=== PATIENT | female | born 1970 | race Two or more races ===

== ENCOUNTER 2018-12-02 20:53 | Inpatient (IN) | payer MEDICAID ==
[~2018-12-02] VITALS: Ht 160 cm; Wt 71.4 kg
--- NOTE | 2018-12-02 21:00 | NUR ---
ED Nurse Note: RECEIVED PT FROM SNF, HERE WITH C/O SEVERE, ABD PAIN WITH NAUSEA AND VOMITING FOR PAST DAY, PT HAS HX OF PANCREATITIS AND DIABETES WITH ELEVATED BS, PT IS ALERT AND ORIENTED X 4, PAIN AT 9/10, NO CP, NO SOB, PT IMMEDIATELY ASSISTED WITH GOWNING AND CARDIAC MONITORING, WILL RESUME CARE ORDERED AND CLOSELY MONITOR.
--- NOTE | 2018-12-02 21:10 | Emergency Room Report ---
History of Present Illness General Chief Complaint: Nausea Source: Patient, EMS Present Illness HPI Patient presents with vomiting, chest pain and high blood sugar. She's had a longterm facility. Her blood sugar was "high". They gave her 12 units of insulin. The patient's been vomiting. EMS reports that it's been coffee grounds. The patient states that she is constipated and last moved her bowels 4 days ago. She also has some mild epigastric pain. She feels nauseated his this time. She was recently hospitalized at [facility]. The patient's had multiple surgeries on her left ankle. She also cares a psychiatric diagnosis. She denies skin rash, headache, joint pain, fever although she complains of chills, dysuria. Allergies: Coded Allergies: No Known Allergies (Unverified , 12/02/18) Patient History Past Medical History: see triage record Past Surgical History: raj, other - Left ankle surgery Social History: Denies: smoking, alcohol use, drug use Social History Narrative longterm facility Last Menstrual Period: UNK Reviewed Nursing Documentation: PMH: Agreed; PSxH: Agreed Nursing Documentation-PMH Past Medical History: No History, Except For Hx Hypertension: Yes - DEHYDRATION, Hx Diabetes: Yes Review of Systems All Other Systems: negative except mentioned in HPI Physical Exam Sp02 EP Interpretation: reviewed, normal General Appearance: no apparent distress, other - GCS 14, eyes closed, Chronically Ill Head: normocephalic Eyes: bilateral eye normal inspection, bilateral eye PERRL, bilateral eye EOMI ENT: moist mucus membranes Neck: supple Respiratory: lungs clear, normal breath sounds Cardiovascular #1: regular rate, rhythm Cardiovascular #2: 2+ radial (R) Gastrointestinal: normal inspection, no mass, non-distended, no guarding, no rebound, tenderness - Diffuse, decreased bowel sounds Genitourinary: no CVA tenderness Musculoskeletal: back normal, normal range of motion Neurologic: motor strength/tone normal, DTRs symmetric, sensory intact, oriented - Tenderness to lethargic Psychiatric: depressed affect Skin: normal inspection, warm/dry, other - Sallow Medical Decision Making Diagnostic Impression: Primary Impression: Hyperglycemia Additional Impressions: UGI bleed Abdominal pain Qualified Codes: R10.84 - Generalized abdominal pain Renal insufficiency ER Course This diabetic patient presents with abdominal pain, chest pain and vomiting coffee grounds. Differential includes acute myocardial infarction, gastritis, gastroparesis, gastroenteritis, pancreatitis amongst others. She will be evaluated with chest x-ray abdominal film, EKG and labs. The patient will receive IV hydration, Reglan, Benadryl, Protonix and morphine. After the bolus we will repeat an Accu-Chek and she most likely will need to have insulin. EKG without injury. CXR, no infiltrates. Abd post raj, NSBGP. Labs with min leukocytosis. Renal insufficiency, elevated glucose, bicarb 18. Glucose better after bolus. Ph = 7.3. No need for insulin drip. Insulin bolus given. Vomit - reglan and benadryl After bolus, glucose 247. Continue hydration. Await UA. UA no infection. Abdomen is soft. Not surgical. Patient admitted telemetry Dr. Dixon. Laboratory Tests Test 12/02/18 21:00 12/02/18 22:30 White Blood Count 11.2 K/UL (4.8-10.8) H Red Blood Count 4.31 M/UL (4.20-5.40) Hemoglobin 12.7 G/DL (12.0-16.0) Hematocrit 38.1 % (37.0-47.0) Mean Corpuscular Volume 88 FL (80-99) Mean Corpuscular Hemoglobin 29.4 PG (27.0-31.0) Mean Corpuscular Hemoglobin Concent 33.3 G/DL (32.0-36.0) Red Cell Distribution Width 12.3 % (11.6-14.8) Platelet Count 384 K/UL (150-450) Mean Platelet Volume 7.6 FL (6.5-10.1) Neutrophils (%) (Auto) % (45.0-75.0) Lymphocytes (%) (Auto) % (20.0-45.0) Monocytes (%) (Auto) % (1.0-10.0) Eosinophils (%) (Auto) % (0.0-3.0) Basophils (%) (Auto) % (0.0-2.0) Differential Total Cells Counted 100 Neutrophils % (Manual) 87 % (45-75) H Lymphocytes % (Manual) 9 % (20-45) L Monocytes % (Manual) 3 % (1-10) Eosinophils % (Manual) 0 % (0-3) Basophils % (Manual) 1 % (0-2) Band Neutrophils 0 % (0-8) Platelet Estimate Adequate Platelet Morphology Normal Red Blood Cell Morphology Normal Sodium Level 135 MMOL/L (136-145) L Potassium Level 4.4 MMOL/L (3.5-5.1) Chloride Level 91 MMOL/L (98-107) L Carbon Dioxide Level 18 MMOL/L (21-32) L Anion Gap 26 mmol/L (5-15) H Blood Urea Nitrogen 45 mg/dL (7-18) H Creatinine 2.1 MG/DL (0.55-1.30) H Estimate Glomerular Filtration Rate 25.2 mL/min (>60) Glucose Level 525 MG/DL (74-106) *H Calcium Level 10.5 MG/DL (8.5-10.1) H Magnesium Level 2.0 MG/DL (1.8-2.4) Total Bilirubin 0.5 MG/DL (0.2-1.0) Aspartate Amino Transferase (AST) 19 U/L (15-37) Alanine Aminotransferase (ALT) 22 U/L (12-78) Alkaline Phosphatase 113 U/L (46-116) Total Protein 9.2 G/DL (6.4-8.2) H Albumin 4.2 G/DL (3.4-5.0) Globulin 5.0 g/dL Albumin/Globulin Ratio 0.8 (1.0-2.7) L Lipase 220 U/L (73-393) Acetone Level Positive-small (NEGATIVE) Venous Blood pH 7.329 Venous Blood Partial Pressure CO2 35.4 Venous Blood Partial Pressure O2 64.2 Venous Blood HCO3 18.2 Venous Blood Total Carbon Dioxide 35.4 Venous Bld O2 Saturation (Measured) Venous Blood Oxygen Saturation 91.8 Venous Blood Base Excess -6.9 Methemoglobin 0.4 Sodium (Blood Gas) EKG Diagnostic Results Rate: normal Rhythm: NSR ST Segments: no acute changes Rhythm Strip Diag. Results EP Interpretation: yes Rhythm: NSR, no PVC's, no ectopy Chest X-Ray Diagnostic Results Chest X-Ray Diagnostic Results : Chest X-Ray Ordered: Yes # of Views/Limited/Complete: 1 View Indication: Other EP Interpretation: Yes Interpretation: no consolidation, no effusion, no pneumothorax Impression: No acute disease Electronically Signed by: Electronically signed by Law Lazar MD Other X-Ray Diagnostic Results Other X-Ray Diagnostic Results : X-Ray ordered: abd # of Views/Limited Vs Complete: 2 View Indication: Pain EP Interpretation: Yes Interpretation: nonspecific bowel gas, no sbo, other - Lucy clips Impression: Other Last Vital Signs Date Time Temp Pulse Resp B/P (MAP) Pulse Ox O2 Delivery O2 Flow Rate FiO2 12/03/18 08:24 98.7 20 159/85 (109) 98 12/03/18 04:00 100 12/03/18 01:00 Room Air Status: improved Disposition: ADMITTED INPATIENT Condition: Serious Law Lazar MD December 02, 2018 21:10
[2018-12-02] MEDS ORDERED: ATIVAN1 MG ORAL (21:11)
[2018-12-02] MEDS ORDERED: LORAZEPAM0.5 GM MC (21:11)
[2018-12-02] MEDS ORDERED: ASPIR 8181 MG ORAL (21:11)
[2018-12-02] MEDS ORDERED: COLACE100 MG ORAL (21:11)
[2018-12-02] MEDS ORDERED: AMBIEN10 M1 ORAL (21:11)
[2018-12-02] MEDS ORDERED: SEROQUEL300 MG ORAL (21:11)
[2018-12-02] MEDS ORDERED: ATORVASTATIN CA40 MG ORAL (21:11)
[2018-12-02] MEDS ORDERED: NEURONTIN300 MG ORAL (21:11)
[2018-12-02] MEDS ORDERED: LISINOPRIL20 MG ORAL (21:11)
[2018-12-02] MEDS ORDERED: LR 1000ml 1,000 ML IV SCH (21:15)
[2018-12-02] MEDS ORDERED: Pantoprazole Inj IVP ONE (21:15)
[2018-12-02] MEDS ORDERED: Morphine Sulfate 4mg/ml Inj (IV USE ONLY) IVP ONE ×2 (21:15→23:15)
[2018-12-02 21:24] LABS: HEMATOCRIT 38.1 % (37.0-47.0); HEMOGLOBIN 12.7 G/DL (12.0-16.0); MEAN CORPUSCULAR VOLUME 88 FL (80-99); PLATELET COUNT 384 K/UL (150-450); RED BLOOD COUNT 4.31 M/UL (4.20-5.40); RED CELL DISTRIBUTION WIDTH 12.3 % (11.6-14.8); WHITE BLOOD COUNT 11.2 K/UL (4.8-10.8)
[2018-12-02 21:45] LABS: ALANINE AMINOTRANSFERASE 22 U/L (12-78); ALBUMIN 4.2 G/DL (3.4-5.0); ALBUMIN/GLOBULIN RATIO 0.8 (1.0-2.7); ALKALINE PHOSPHATASE 113 U/L (46-116); ANION GAP 26 mmol/L (5-15); ASPARTATE AMINO TRANSFERASE 19 U/L (15-37); BILIRUBIN,TOTAL 0.5 MG/DL (0.2-1.0); BLOOD UREA NITROGEN 45 mg/dL (7-18); CALCIUM 10.5 MG/DL (8.5-10.1); CARBON DIOXIDE 18 MMOL/L (21-32); CHLORIDE 91 MMOL/L (98-107); CREATININE 2.1 MG/DL (0.55-1.30); POTASSIUM 4.4 MMOL/L (3.5-5.1); SODIUM 135 MMOL/L (136-145)
[2018-12-02] MEDS ORDERED: SULFAMETHOXAZO480 ML ORAL (21:45)
[2018-12-02] MEDS ORDERED: MECLIZINE HCL25 M1 ORAL (21:45)
[2018-12-02] MEDS ORDERED: MORPHINE IR15 MG ORAL (21:45)
[2018-12-02] MEDS ORDERED: SUMATRIPTA6 MG/0.54 PO (21:45)
[2018-12-02] MEDS ORDERED: METFORMIN HCL5000 GM MC (21:45)
[2018-12-02] MEDS ORDERED: CITRATE OF MAG296 ML PO (21:45)
[2018-12-02] MEDS ORDERED: ZOLOFT100 MG ORAL (21:47)
[2018-12-02] MEDS ORDERED: ZOFRAN4 M1 ORAL (21:47)
[2018-12-02 22:00] VITALS: BP 118/65
[2018-12-02] MEDS ORDERED: D5 1/2NS 1,000 ML IV SCH (22:49)
[2018-12-02] MEDS ORDERED: Morphine Sulfate 2mg/ml Inj(IV/IM USE ONLY) IVP PRN (23:00)
[2018-12-02] MEDS ORDERED: Morphine IR 15mg tab ORAL PRN (23:00)
[2018-12-02] MEDS ORDERED: Insulin Human Regular 100units/ml 3ml IV ONE (23:00)
[2018-12-02] MEDS ORDERED: Miralax 17gm pkt ORAL PRN (23:00)
[2018-12-02] MEDS ORDERED: Nitroglycerin Subl 0.4mg tab SL PRN (23:00)
[2018-12-02] MEDS ORDERED: Metoclopramide 10mg/2ml Inj IVP ONE (23:15)
[2018-12-02] MEDS ORDERED: DiphenhydrAMINE 50mg/ml Inj IVP ONE (23:15)
--- NOTE | 2018-12-02 23:15 | NUR ---
ED Nurse Note: Pt continues to rest quietly in bed, awake and alert, meds given as ordered, pain meds slightly effective and nausea resolved after meds, pt rates pain at 6/10, remains on cardiac monitoring, blood sugar level re-taken and recorded, md is aware, will repeat test after iv fluids completed, pt remains on cardiac monitoring, will continue to closely monitor and prepare for admission.
[2018-12-02 23:30] VITALS: BP 107/53
[2018-12-03] VITALS (10 sets, daily range): BP systolic 119–166; BP diastolic 62–91
[2018-12-03 00:14] LABS: APPEARANCE,URINE CLEAR; BILIRUBIN, URINE NEGATIVE (NEGATIVE); COLOR,URINE PALE YELLOW; GLUCOSE, URINE (UA) 4+ (NEGATIVE); KETONES,URINE 4+ (NEGATIVE); LEUKOCYTE ESTERASE ,URINE NEGATIVE (NEGATIVE); NITRITE,URINE NEGATIVE (NEGATIVE); PH,URINE 5 (4.5-8.0); PROTEIN,URINE 2+ (NEGATIVE); UROBILINOGEN,URINE NORMAL MG/DL (0.0-1.0)
--- NOTE | 2018-12-03 00:30 | NUR ---
ED Nurse Note: Pt continues to rest in bed, family at bedside, blood sugar level decreased after iv insulin, pt remains with abdominal pain, md aware and pt re-medicated, will monitor for effectiveness, waiting for md to state pt is ok to go to floor for admit.
--- NOTE | 2018-12-03 00:40 | NUR ---
ED Nurse Note: PT OK TO GO TO FLOOR FOR ADMIT PER , REPORT CALLED TO FLOOR NURSE STACI,RN, PT IN BED AWAKE, ALERT AND ORIENTED X 4, AND MOTHER AT BEDSIDE, PT PAIN LEVEL AT 4/10, IV SITE PATENT, NO CP, NO SOB, PT BEING TAKEN TO FLOOR UNIT VIA GURNEY AND ACLS PROTOCOLS, PT HAS ALL BELONIGNGS, LIST COMPLETED, NAD NOTED DURING PT TRANSFER TO FLOOR.
--- NOTE | 2018-12-03 01:00 | NUR ---
NURSE NOTES: Pt report Received from Yady MARQUEZ-RN. Pt was brought up with all belongings and was placed at bed side. Pt appears to have symptoms of Nausea accompanied with vomiting. Pt is alert and oriented times 4. Pt has a case monitor placed and displays Sinus Tacky. pt is on room air is saturating at 99% with no other acute signs or symptoms of respiratory failure noted. Pt has a 18G R FA inserted and able to flush, no complications noted. All safety precautions noted and taken such as Bed is in lowest position, call light is within easy reach, bed rails up times 3, bed alarm active. Will establish plan of care.
--- NOTE | 2018-12-03 01:30 | NUR ---
NURSE NOTES: MD Dixon was messaged regarding PTs condition on MD urgent line. Awaiting MD response and further orders.
--- NOTE | 2018-12-03 01:41 | NUR ---
NURSE NOTES: MD Morgan was messaged regarding PTs condition such as shaking, vomiting and tracky. awaiting MD response and further orders.
--- NOTE | 2018-12-03 05:48 | NUR ---
NURSE NOTES: Called pipeline to order label for Novolog Pen.
[2018-12-03] MEDS ORDERED: NovoLOG Insulin Flexpen SUBQ SCH ×4 (06:30→11:50)
[2018-12-03 06:50] LABS: BASOPHILS % (AUTO) 0.8 % (0.0-2.0); HEMATOCRIT 35.6 % (37.0-47.0); HEMOGLOBIN 11.6 G/DL (12.0-16.0); MEAN CORPUSCULAR VOLUME 90 FL (80-99); NEUTROPHILS % (AUTO) 83.3 % (45.0-75.0); PLATELET COUNT 350 K/UL (150-450); RED BLOOD COUNT 3.94 M/UL (4.20-5.40); RED CELL DISTRIBUTION WIDTH 13.2 % (11.6-14.8); WHITE BLOOD COUNT 14.2 K/UL (4.8-10.8)
[2018-12-03 07:11] LABS: ALANINE AMINOTRANSFERASE 21 U/L (12-78); ALBUMIN 3.8 G/DL (3.4-5.0); ALBUMIN/GLOBULIN RATIO 0.9 (1.0-2.7); ALKALINE PHOSPHATASE 97 U/L (46-116); AMYLASE 91 U/L (25-115); ANION GAP 20 mmol/L (5-15); ASPARTATE AMINO TRANSFERASE 16 U/L (15-37); BILIRUBIN,TOTAL 0.6 MG/DL (0.2-1.0); BLOOD UREA NITROGEN 42 mg/dL (7-18); CALCIUM 9.8 MG/DL (8.5-10.1); CARBON DIOXIDE 20 MMOL/L (21-32); CHLORIDE 99 MMOL/L (98-107); CREATININE 1.9 MG/DL (0.55-1.30); POTASSIUM 4.2 MMOL/L (3.5-5.1); SODIUM 139 MMOL/L (136-145)
--- NOTE | 2018-12-03 07:13 | NUR ---
NURSE NOTES: Called MD Polo In regards to transfer.
--- NOTE | 2018-12-03 08:25 | NUR ---
NURSE NOTES: Pt report k-kayli FAROOQ. Pt was brought up from tele. Pt c/o Nausea. Pt is A/OX 4. Pt IS connected to yard brakeman placed HR 109. BP 159/85, RR 20, 02SAT 99%. pt is on room air, saturating at 99%. abdomen round, bowel sounds hypoactive. no BM since 11/28-per pt report. Pt has a 18G R FA inserted, patent and intact. voids. All safety precautions in place. Bed is in lowest position, call light is within easy reach, bed rails up x3, bed alarm active. Will establish plan of care.
--- NOTE | 2018-12-03 08:32 | NUR ---
HAND-OFF: Report given to Gregoria FAROOQ ICU.
[2018-12-03] MEDS ORDERED: Nitroglycerin Subl 0.4mg tab SL PRN (08:45)
[2018-12-03] MEDS ORDERED: Levemir Flexpen SUBQ SCH ×2 (09:00→10:30)
[2018-12-03] MEDS ORDERED: Morphine Sulfate 2mg/ml Inj(IV/IM USE ONLY) IVP PRN (09:00)
[2018-12-03] MEDS ORDERED: Sertraline 100mg tab ORAL SCH (09:00)
--- NOTE | 2018-12-03 09:27 | NUR ---
*-* NO INSURANCE INFORMATION IN THE BAR TO SEND CLINICALS *-*
[2018-12-03] MEDS ORDERED: D5 1/2NS 1,000 ML IV SCH ×2 (09:30→10:30)
--- NOTE | 2018-12-03 10:08 | NUR ---
NURSE NOTES: called MD Polo for additional order for pt. need for insulin drip or not, accuchk 226. wbc 14.2 continue. awaiting call back.
--- NOTE | 2018-12-03 10:16 | NUR ---
NURSE NOTES: md estes here to see pt. order to increase d5 1/2 ns from 75 to 175ml/hr. will place additional orders
[2018-12-03] MEDS: LORazepam 0.5mg tab ORAL PRN ×3 (10:35→23:38)
--- NOTE | 2018-12-03 10:36 | History & Physical ---
History and Physical History & Physicial Job @ [id number] Donald Dixon MD December 03, 2018 10:36
[2018-12-03] MEDS: Sertraline 100mg tab ORAL SCH (10:42)
--- NOTE | 2018-12-03 10:55 | NUR ---
NURSE NOTES: pt c/o pain 03/29 requested morphine for back pain. Requested Ativan for anxiety. pt sitting up in bed rocking back and forth and shaking hands. VSS. MD Morgan here to see pt. MD Dixon placed order to change IV fluids to NS @125ml/hr.
[2018-12-03] MEDS ORDERED: Morphine IR 15mg tab ORAL PRN (11:00)
--- NOTE | 2018-12-03 11:02 | Pulmonolgy Critical Care Note ---
Critical Care - Asmt/Plan Problems: (1) UGI bleed (2) Hyperglycemia Respiratory: adjust tidal volume, adjust FIO2 Cardiac: stop pressors Infectious Disease: check cultures Gastrointestinal: continue feedings/current rate Endocrine: check TSH, continue sliding scale insulin Hematologic: monitor H/H, transfuse if hgb<8.5 Neurologic: keep patient comfortable Affect: PRN ativan Notes Reviewed: cardio, renal Discussed with: consultants, family service caseworkermanager oracle - Objective Last 24 Hour Vital Signs Date Time Temp Pulse Resp B/P (MAP) Pulse Ox O2 Delivery O2 Flow Rate FiO2 12/03/18 08:24 98.7 20 159/85 (109) 98 12/03/18 08:00 109 12/03/18 04:00 98.2 100 18 140/90 (107) 99 12/03/18 04:00 113 12/03/18 01:06 137 12/03/18 01:00 Room Air 12/03/18 00:40 98.4 108 16 107/53 99 Room Air 12/02/18 23:30 98.4 108 16 107/53 99 Room Air 12/02/18 22:00 98.4 104 16 118/65 99 Room Air 12/02/18 20:46 98.2 95 22 99 Room Air Status: awake Condition: critical HEENT: atraumatic Lungs: clear Heart: HR/BP stable, HR/BP unstable Abdomen: soft, active bowel sounds Extremities: edema Decubiti: location Micro: Microbiology Date/Time Source Procedure Growth Status 12/02/18 23:30 Rectum Received Accucheck: 325 Critical Care - Subjective ROS Limited/Unobtainable: Yes Interval Events: pt admitted with hyperglycemia/nausea/vomiting I&O: Intake and Output 12/02/18 12/03/18 18:59 06:59 Output Total 400 ml Balance -400 ml Output Urine Total 400 ml # Voids 100 Labs: Laboratory Tests Test 12/02/18 21:00 12/02/18 22:25 12/02/18 23:40 12/03/18 06:20 White Blood Count 11.2 K/UL (4.8-10.8) H 14.2 K/UL (4.8-10.8) H Red Blood Count 4.31 M/UL (4.20-5.40) 3.94 M/UL (4.20-5.40) L Hemoglobin 12.7 G/DL (12.0-16.0) 11.6 G/DL (12.0-16.0) L Hematocrit 38.1 % (37.0-47.0) 35.6 % (37.0-47.0) L Mean Corpuscular Volume 88 FL (80-99) 90 FL (80-99) Mean Corpuscular Hemoglobin 29.4 PG (27.0-31.0) 29.3 PG (27.0-31.0) Mean Corpuscular Hemoglobin Concent 33.3 G/DL (32.0-36.0) 32.5 G/DL (32.0-36.0) Red Cell Distribution Width 12.3 % (11.6-14.8) 13.2 % (11.6-14.8) Platelet Count 384 K/UL (150-450) 350 K/UL (150-450) Mean Platelet Volume 7.6 FL (6.5-10.1) 8.5 FL (6.5-10.1) Neutrophils (%) (Auto) % (45.0-75.0) 83.3 % (45.0-75.0) H Lymphocytes (%) (Auto) % (20.0-45.0) 11.0 % (20.0-45.0) L Monocytes (%) (Auto) % (1.0-10.0) 5.0 % (1.0-10.0) Eosinophils (%) (Auto) % (0.0-3.0) 0.0 % (0.0-3.0) Basophils (%) (Auto) % (0.0-2.0) 0.8 % (0.0-2.0) Differential Total Cells Counted 100 Neutrophils % (Manual) 87 % (45-75) H Lymphocytes % (Manual) 9 % (20-45) L Monocytes % (Manual) 3 % (1-10) Eosinophils % (Manual) 0 % (0-3) Basophils % (Manual) 1 % (0-2) Band Neutrophils 0 % (0-8) Platelet Estimate Adequate Platelet Morphology Normal Red Blood Cell Morphology Normal Sodium Level 135 MMOL/L (136-145) L 139 MMOL/L (136-145) Potassium Level 4.4 MMOL/L (3.5-5.1) 4.2 MMOL/L (3.5-5.1) Chloride Level 91 MMOL/L (98-107) L 99 MMOL/L (98-107) Carbon Dioxide Level 18 MMOL/L (21-32) L 20 MMOL/L (21-32) L Anion Gap 26 mmol/L (5-15) H 20 mmol/L (5-15) H Blood Urea Nitrogen 45 mg/dL (7-18) H 42 mg/dL (7-18) H Creatinine 2.1 MG/DL (0.55-1.30) H 1.9 MG/DL (0.55-1.30) H Estimat Glomerular Filtration Rate 25.2 mL/min (>60) 28.2 mL/min (>60) Glucose Level 525 MG/DL (74-106) *H 349 MG/DL (74-106) #H Calcium Level 10.5 MG/DL (8.5-10.1) H 9.8 MG/DL (8.5-10.1) Magnesium Level 2.0 MG/DL (1.8-2.4) 1.8 MG/DL (1.8-2.4) Total Bilirubin 0.5 MG/DL (0.2-1.0) 0.6 MG/DL (0.2-1.0) Aspartate Amino Transf (AST/SGOT) 19 U/L (15-37) 16 U/L (15-37) Alanine Aminotransferase (ALT/SGPT) 22 U/L (12-78) 21 U/L (12-78) Alkaline Phosphatase 113 U/L (46-116) 97 U/L (46-116) Total Protein 9.2 G/DL (6.4-8.2) H 8.1 G/DL (6.4-8.2) Albumin 4.2 G/DL (3.4-5.0) 3.8 G/DL (3.4-5.0) Globulin 5.0 g/dL 4.3 g/dL Albumin/Globulin Ratio 0.8 (1.0-2.7) L 0.9 (1.0-2.7) L Lipase 220 U/L (73-393) 367 U/L (73-393) Acetone Level Positive-small (NEGATIVE) Venous Blood pH 7.329 Venous Blood Partial Pressure CO2 35.4 Venous Blood Partial Pressure O2 64.2 Venous Blood HCO3 18.2 Venous Blood Total Carbon Dioxide 35.4 Venous Bld O2 Saturation (Measured) Venous Blood Oxygen Saturation 91.8 Venous Blood Base Excess -6.9 Methemoglobin 0.4 Sodium (Blood Gas) Urine Color Pale yellow Urine Appearance Clear Urine pH 5 (4.5-8.0) Urine Specific [place] 1.010 (1.005-1.035) Urine Protein 2+ (NEGATIVE) H Urine Glucose (UA) 4+ (NEGATIVE) H Urine Ketones 4+ (NEGATIVE) H Urine Blood Negative (NEGATIVE) Urine Nitrite Negative (NEGATIVE) Urine Bilirubin Negative (NEGATIVE) Urine Urobilinogen Normal MG/DL (0.0-1.0) Urine Leukocyte Esterase Negative (NEGATIVE) Urine RBC 0-2 /HPF (0 - 2) Urine WBC 2-4 /HPF (0 - 2) Urine Squamous Epithelial Cells Moderate /LPF (NONE/OCC) H Urine Bacteria Few /HPF (NONE) Urine HCG, Qualitative Negative (NEGATIVE) Prothrombin Time 10.3 SEC (9.30-11.50) Prothromb Time International Ratio 1.0 (0.9-1.1) Activated Partial Thromboplast Time 24 SEC (23-33) Hemoglobin A1c 10.6 % (4.3-6.0) H Phosphorus Level 4.0 MG/DL (2.5-4.9) Amylase Level 91 U/L (25-115) Test 12/03/18 10:41 Lactic Acid Level Pending Misbah Morgan MD December 03, 2018 11:02
--- NOTE | 2018-12-03 11:30 | NUR ---
NURSE NOTES: PT HAVING PROCEDURE U.S OF RENAL AT BEDSIDE. Addendum: 12/03/18 at 1251 by Pura Donaldson RN having duplex of lower extremity
--- NOTE | 2018-12-03 11:45 | Diagnostic Imaging Report ---
Indication: Abdominal pain Comparison: None Single view of the abdomen obtained Findings: Bowel gas pattern is nonspecific. No mass, ectopic calcifications, or abnormal gas collections are identified. The bones are unremarkable. Cholecystectomy clips in the right upper quadrant noted. Impression: No acute findings
--- NOTE | 2018-12-03 11:45 | GI Progress Note ---
Assessment/Plan Problems: (1) DKA (diabetic ketoacidoses) ICD Codes: E11.10 - Type 2 diabetes mellitus with ketoacidosis without coma SNOMED: 08763887, [id number] (2) Constipation ICD Codes: K59.00 - Constipation, unspecified SNOMED: 84722854 Assessment/Plan colace and miralax add more laxative if needed icu care Subjective Gastrointestinal/Abdominal: Reports: no symptoms Objective Last 24 Hour Vital Signs Date Time Temp Pulse Resp B/P (MAP) Pulse Ox O2 Delivery O2 Flow Rate FiO2 12/03/18 09:00 Room Air 12/03/18 08:24 98.7 20 159/85 (109) 98 12/03/18 08:00 109 12/03/18 04:00 98.2 100 18 140/90 (107) 99 12/03/18 04:00 113 12/03/18 01:06 137 12/03/18 01:00 Room Air 12/03/18 00:40 98.4 108 16 107/53 99 Room Air 12/02/18 23:30 98.4 108 16 107/53 99 Room Air 12/02/18 22:00 98.4 104 16 118/65 99 Room Air 12/02/18 20:46 98.2 95 22 99 Room Air Intake and Output 12/02/18 12/03/18 18:59 06:59 Output Total 400 ml Balance -400 ml Output Urine Total 400 ml # Voids 100 Laboratory Tests Test 12/02/18 21:00 12/02/18 22:25 12/02/18 23:40 12/03/18 06:20 White Blood Count 11.2 K/UL (4.8-10.8) H 14.2 K/UL (4.8-10.8) H Red Blood Count 4.31 M/UL (4.20-5.40) 3.94 M/UL (4.20-5.40) L Hemoglobin 12.7 G/DL (12.0-16.0) 11.6 G/DL (12.0-16.0) L Hematocrit 38.1 % (37.0-47.0) 35.6 % (37.0-47.0) L Mean Corpuscular Volume 88 FL (80-99) 90 FL (80-99) Mean Corpuscular Hemoglobin 29.4 PG (27.0-31.0) 29.3 PG (27.0-31.0) Mean Corpuscular Hemoglobin Concent 33.3 G/DL (32.0-36.0) 32.5 G/DL (32.0-36.0) Red Cell Distribution Width 12.3 % (11.6-14.8) 13.2 % (11.6-14.8) Platelet Count 384 K/UL (150-450) 350 K/UL (150-450) Mean Platelet Volume 7.6 FL (6.5-10.1) 8.5 FL (6.5-10.1) Neutrophils (%) (Auto) % (45.0-75.0) 83.3 % (45.0-75.0) H Lymphocytes (%) (Auto) % (20.0-45.0) 11.0 % (20.0-45.0) L Monocytes (%) (Auto) % (1.0-10.0) 5.0 % (1.0-10.0) Eosinophils (%) (Auto) % (0.0-3.0) 0.0 % (0.0-3.0) Basophils (%) (Auto) % (0.0-2.0) 0.8 % (0.0-2.0) Differential Total Cells Counted 100 Neutrophils % (Manual) 87 % (45-75) H Lymphocytes % (Manual) 9 % (20-45) L Monocytes % (Manual) 3 % (1-10) Eosinophils % (Manual) 0 % (0-3) Basophils % (Manual) 1 % (0-2) Band Neutrophils 0 % (0-8) Platelet Estimate Adequate Platelet Morphology Normal Red Blood Cell Morphology Normal Sodium Level 135 MMOL/L (136-145) L 139 MMOL/L (136-145) Potassium Level 4.4 MMOL/L (3.5-5.1) 4.2 MMOL/L (3.5-5.1) Chloride Level 91 MMOL/L (98-107) L 99 MMOL/L (98-107) Carbon Dioxide Level 18 MMOL/L (21-32) L 20 MMOL/L (21-32) L Anion Gap 26 mmol/L (5-15) H 20 mmol/L (5-15) H Blood Urea Nitrogen 45 mg/dL (7-18) H 42 mg/dL (7-18) H Creatinine 2.1 MG/DL (0.55-1.30) H 1.9 MG/DL (0.55-1.30) H Estimat Glomerular Filtration Rate 25.2 mL/min (>60) 28.2 mL/min (>60) Glucose Level 525 MG/DL (74-106) *H 349 MG/DL (74-106) #H Calcium Level 10.5 MG/DL (8.5-10.1) H 9.8 MG/DL (8.5-10.1) Magnesium Level 2.0 MG/DL (1.8-2.4) 1.8 MG/DL (1.8-2.4) Total Bilirubin 0.5 MG/DL (0.2-1.0) 0.6 MG/DL (0.2-1.0) Aspartate Amino Transf (AST/SGOT) 19 U/L (15-37) 16 U/L (15-37) Alanine Aminotransferase (ALT/SGPT) 22 U/L (12-78) 21 U/L (12-78) Alkaline Phosphatase 113 U/L (46-116) 97 U/L (46-116) Total Protein 9.2 G/DL (6.4-8.2) H 8.1 G/DL (6.4-8.2) Albumin 4.2 G/DL (3.4-5.0) 3.8 G/DL (3.4-5.0) Globulin 5.0 g/dL 4.3 g/dL Albumin/Globulin Ratio 0.8 (1.0-2.7) L 0.9 (1.0-2.7) L Lipase 220 U/L (73-393) 367 U/L (73-393) Acetone Level Positive-small (NEGATIVE) Venous Blood pH 7.329 Venous Blood Partial Pressure CO2 35.4 Venous Blood Partial Pressure O2 64.2 Venous Blood HCO3 18.2 Venous Blood Total Carbon Dioxide 35.4 Venous Bld O2 Saturation (Measured) Venous Blood Oxygen Saturation 91.8 Venous Blood Base Excess -6.9 Methemoglobin 0.4 Sodium (Blood Gas) Urine Color Pale yellow Urine Appearance Clear Urine pH 5 (4.5-8.0) Urine Specific [place] 1.010 (1.005-1.035) Urine Protein 2+ (NEGATIVE) H Urine Glucose (UA) 4+ (NEGATIVE) H Urine Ketones 4+ (NEGATIVE) H Urine Blood Negative (NEGATIVE) Urine Nitrite Negative (NEGATIVE) Urine Bilirubin Negative (NEGATIVE) Urine Urobilinogen Normal MG/DL (0.0-1.0) Urine Leukocyte Esterase Negative (NEGATIVE) Urine RBC 0-2 /HPF (0 - 2) Urine WBC 2-4 /HPF (0 - 2) Urine Squamous Epithelial Cells Moderate /LPF (NONE/OCC) H Urine Bacteria Few /HPF (NONE) Urine HCG, Qualitative Negative (NEGATIVE) Prothrombin Time 10.3 SEC (9.30-11.50) Prothromb Time International Ratio 1.0 (0.9-1.1) Activated Partial Thromboplast Time 24 SEC (23-33) Hemoglobin A1c 10.6 % (4.3-6.0) H Phosphorus Level 4.0 MG/DL (2.5-4.9) Amylase Level 91 U/L (25-115) Test 12/03/18 10:41 Lactic Acid Level 2.50 mmol/L (0.4-2.0) H Microbiology Date/Time Source Procedure Growth Status 12/02/18 23:30 Rectum Received Height (Feet): 5 Height (Inches): 3.00 Weight (Pounds): 170 General Appearance: alert Cardiovascular: normal rate Respiratory/Chest: lungs clear Abdominal Exam: normal bowel sounds, non tender, soft Extremities: non-tender Shayne Medina MD December 03, 2018 11:45
--- NOTE | 2018-12-03 11:45 | Diagnostic Imaging Report ---
Indication: Chest and abdominal pain Comparison: None A single view chest radiograph was obtained. Findings: Cardiomediastinal appearance is within normal limits for age. The lungs are clear. Pulmonary vascularity is appropriate. The diaphragmatic contour is smooth and costophrenic angles are sharp. No pleural effusions are identified. The bones are unremarkable. Impression: No acute findings
--- NOTE | 2018-12-03 12:25 | NUR ---
CASE MANAGEMENT:REVIEW 48 YR OLD FEMALE BIBA FROM [facility] CC: NAUSEA AND VOMITING. COFFEE GROUND EMESIS SI: HYPERGLYCEMIA. UGIB. ABDOMINAL PAIN 98.3 104 22 118/65 99% ON RA WBC+11.1 BUN+45 CR+2.1 GLUCOSE+525 IS: 1L NS BOLUS IV ZOFRAN IV MORPHINE 1L LR BOLUS IV PROTONIX IV INSULIN XRAY ABDOMEN CHEST XRAY : TO TELEMETRY INTERQUAL CRITERIA MET
--- NOTE | 2018-12-03 12:34 | NUR ---
NURSE NOTES: recevied call from md lopez, to place order for iv insulin, d/c subcut insulin.
--- NOTE | 2018-12-03 12:51 | NUR ---
NURSE NOTES: renal U.S being done on pt. vss.
[2018-12-03 13:19] LABS: APPEARANCE,URINE CLEAR; BILIRUBIN, URINE NEGATIVE (NEGATIVE); COLOR,URINE PALE YELLOW; GLUCOSE, URINE (UA) 4+ (NEGATIVE); KETONES,URINE 4+ (NEGATIVE); LEUKOCYTE ESTERASE ,URINE 1+ (NEGATIVE); PH,URINE 5 (4.5-8.0); PROTEIN,URINE 2+ (NEGATIVE); UROBILINOGEN,URINE NORMAL MG/DL (0.0-1.0)
[2018-12-03 13:29] LABS: NITRITE,URINE NEGATIVE (NEGATIVE)
[2018-12-03] MEDS ORDERED: Insulin Rate Change 1 Each MISC PRN (14:00)
[2018-12-03] MEDS ORDERED: Insulin Human Regular 100units/ml 3ml IV PRN (14:00)
[2018-12-03] MEDS: Insulin Human Regular 100units/ml 3ml IV PRN ×2 (14:30→15:54)
--- NOTE | 2018-12-03 14:35 | NUR ---
NURSE NOTES: BG 257, STARTING IV INSULIN @3UNITS/KG/MIN, +5 UNITS IVP REGULAR INSULIN.
--- NOTE | 2018-12-03 14:39 | NUR ---
NURSE NOTES: LAB HERE TO DRAW BLOOD. PT VSS. WILL CONTINUE TO MONITOR. PT VOMITED 1X CLEAR WITH BROWN SPECKS. ZOFRAN ADMINISTERED., IVP PER EMAR. WILL CONTINUE TO MONITOR PT.
[2018-12-03 14:58] LABS: CREATINE KINASE 47 U/L (26-308)
--- NOTE | 2018-12-03 15:00 | NUR ---
NURSE NOTES: pt resting in bed. linen changed, pt cleaned with minimal assistance. vss. invited family in after cleaning, at bedside now.
--- NOTE | 2018-12-03 15:17 | Diagnostic Imaging Report ---
Indication:Elevated Bun and Creatinine. Technique: Grayscale and duplex Doppler imaging of the kidneys performed. Comparison: None Findings: The size, contour, and echogenicity of both kidneys are within normal limits. Right kidney 9.6 cm. Left kidney 9.5 cm. There is no hydronephrosis. The IVC and urinary bladder are unremarkable. Impression: Negative evaluation
--- NOTE | 2018-12-03 17:00 | NUR ---
NURSE NOTES: bg 127, not in taget range 90-120, post 3hrs of insulin drip. moving up to alog 2. insulin drip at 1.5units/kg/min
[2018-12-03] MEDS: Docusate 100mg cap ORAL SCH (17:07)
--- NOTE | 2018-12-03 18:00 | Consultation ---
DATE OF CONSULTATION: 12/03/2018 ENDOCRINOLOGY CONSULTATION CONSULTING PHYSICIAN: Diallo Polo M.D. REFERRING PHYSICIAN: Donald Dixon M.D. REASON FOR CONSULTATION: Elevated glucose. HISTORY OF PRESENT ILLNESS: The patient is a 48-year-old female with a history of diabetes, who presented to the hospital from residential facility with high blood sugar, nausea, vomiting, and coffee ground emesis. The patient was given 12 units of insulin at the field and the patient is constipated. Last moved her bowels four days ago. Does have epigastric pain and had a recent admission to the [facility]. She had multiple surgeries on the left ankle and she does also have some underlying psychiatric illness. PAST MEDICAL HISTORY: 1. Diabetes. 2. Psychiatric illness. 3. Hypertension. 4. Dyslipidemia. PAST SURGICAL HISTORY: Ankle surgery. FAMILY HISTORY: Noncontributory. SOCIAL HISTORY: No active smoking, alcohol, or drug use. Currently, she lives in residential facility. REVIEW OF SYSTEMS: As per HPI. LABORATORY VALUES: WBC 11, hemoglobin 12, hematocrit 38, and platelets of 384. Sodium 135, potassium 4.4, chloride 91, bicarbonate 18, BUN 45, creatinine 2.1, anion gap 26, glucose of 525, calcium of 10.5, lipase 220. PHYSICAL EXAMINATION: VITAL SIGNS: Blood pressure 105/53, pulse of 108, temperature of 98, and respiratory rate of 16. HEENT: Pupils are equal and reactive to light. Sclerae anicteric. NECK: No JVD. HEART: Tachy. LUNGS: Decreased breath sounds. ABDOMEN: Positive bowel sounds. EXTREMITIES: No clubbing or cyanosis. DIAGNOSES: 1. Severe hyperglycemia, with gap acidosis, DKA. The patient has 4+ ketones in the urine and acetone in blood and possibility of concomitant lactic acidosis needs to be ruled out as well. 2. Acute kidney injury. PLAN: 1. Continue IV fluids. 2. Transfer the patient to the ICU to be treated with IV insulin. 3. Monitor electrolytes, BMP, magnesium and phosphorus as well as lactic acid. 4. RN to call me with the results. Once anion gap is closed, we will switch the patient to subcutaneous insulin therapy. 5. Blood glucose monitoring every hour. Thank you, Dr. Dixon for the courtesy of this consultation. Diallo Polo M.D. DR: TORSTEN JOB#: [id number] CC: JAMES
--- NOTE | 2018-12-03 19:15 | History and Physical Report ---
DATE OF ADMISSION: 12/02/2018 CHIEF COMPLAINT: Vomiting dark material. HISTORY OF PRESENT ILLNESS: This is a 48-year-old female with past medical history significant for diabetes type 2, anxiety disorder, hypotension, dyslipidemia, and chronic back pain with history of lumbar spine compression fracture as well as history of left ankle surgery, who presented to the hospital complaining about nausea and vomiting. She stated that she has been vomiting dark material and was noted at the nursing facility that her blood glucose levels was noted high and 12 units of insulin was given to the patient. The patient was having a coffee-grounds emesis x24 hours associated with intractable nausea and vomiting. She denies any fall or head trauma. She has been having history of constipation. Last bowel movement was four days ago. Pain occasionally in the epigastric area. She was recently hospitalized at the [facility]. Shortly after initial evaluation in the emergency room, the patient was noted to have elevated glucose with a glucose level 525, ketone positive and subsequently the patient has been admitted to ICU with DKA as well as possible upper GI bleed. PAST MEDICAL HISTORY/PAST SURGICAL HISTORY: As above, history of hypotension, diabetes type 2, dyslipidemia, anxiety disorder, left ankle multiple surgeries x8 surgeries, history of cholecystectomy, pseudocyst removal from the pancreas, chronic lower back pain due to the compression fracture of the spine as well as spondylolysis. MEDICATIONS: Medications at home,, please refer to medication reconciliation. ALLERGIES: No known drug allergies. SOCIAL HISTORY: The patient denies any smoking, alcohol, or drugs at this time. FAMILY HISTORY: Noncontributory except diabetes and high blood pressure runs in the family. REVIEW OF SYSTEMS: Mostly as above. Denies any dysuria, frequency, or hematuria. Complained about the nausea and vomiting. Denies any hemoptysis. Positive for hematochezia. Denies any loss of consciousness. Denies any fall or head trauma. Denies any suicidal or homicidal ideation. Denies any double vision. PHYSICAL EXAMINATION: VITAL SIGNS: On admission from the ER is significant for temperature 98.4, pulse 108, respirations 16, and blood pressure 107/53. GENERAL: The patient is awake and responsive, in no acute distress. HEAD AND NECK: Pupils are equal and reactive to light. Extraocular movements intact. Neck was supple. No JVD. LUNGS: Good air entry. No wheeze or rales. HEART: S1, S2. Tachycardic. No murmur or gallops. ABDOMEN: Soft and nondistended. Tenderness on deep palpation in the epigastric area. No rebound tenderness. No fluid shift. Midline surgical scar was noted from previous surgery. EXTREMITIES: No cyanosis, clubbing, or edema. NEUROLOGIC: Cranial nerves II to XII grossly intact. Motor is 5/5 in all extremities. Gait is intact. RECTAL: Refused and deferred. GENITOURINARY: Refused and deferred. PSYCHIATRIC: Mood and affect is anxious. LABORATORY DATA: On admission WBC 11, hemoglobin 12, hematocrit 38, and platelets 384. ABG, pH of 7.32, pCO2 35, pO2 64, and saturation is 91%. Sodium 135, potassium 4.4, chloride 91, bicarb 18, BUN 45, and creatinine 2.1. Blood glucose elevated to 525. Hemoglobin A1c is 10.6. Calcium is 10.5. Lipase is 220 ,follow up with 367. Amylase is 91. PT 10, INR 1.0, and PTT 24. Urinalysis - +2 protein, +4 glucose, +4 ketones, moderate epithelial cell. Acetone level is small positive. ASSESSMENT: 1. Diabetic ketoacidosis. 2. Upper gastrointestinal bleed. 3. Severe dehydration. 4. Acute renal failure on chronic. 5. Uncontrolled diabetes type 2. 6. Dyslipidemia. 7. Hypotension, most likely secondary to volume depletion. 8. Chronic lumbar disk disease. PLAN: Admit the patient to ICU. We will follow up with the DKA protocol. Discussed case with Dr. Morgan, Pulmonary Critical Care and Dr. Polo from Endocrine. We will follow up with Dr. Mccoy from Gastroenterology. Clear liquid diet. Code status is Full Code. DVT prophylaxis, SCDs. Start the patient on Protonix twice a day and Ativan as needed. Monitor laboratory. Monitor blood glucose level closely. Donald Dixon M.D. DR: RAMY JOB#: [id number] CC:
--- NOTE | 2018-12-03 19:26 | NUR ---
HAND-OFF: Report given to Bismark FAROOQ. pt in no acute distress.
--- NOTE | 2018-12-03 19:30 | NUR ---
NURSE NOTES: Received pt in bed, in no acute distress, calm, quiet, asleep but arousable to name. Denies any pain, denies SOB, denies N/V and abdominal pains. Breathing without problems on room air; BP stable; ST on the monitor, afebrile. PIV site on RFA intact. IVF of NS infuses at 125ml/h. Insulin gtt infuses at algorithm 2. Will continue to check blood sugar qhrly and adjust ins gtt per sliding scale. Plan of care explained.
[2018-12-03] MEDS: Miralax 17gm pkt ORAL SCH (20:34)
[2018-12-03] MEDS ORDERED: Miralax 17gm pkt ORAL PRN (21:00)
--- NOTE | 2018-12-03 21:30 | NUR ---
NURSE NOTES: Awake but claims to be anxious. Restless on bed. Shakes her legs voluntarily but no seizures. Wants her Ativan but not due yet. Sleeping pill given as requested.
[2018-12-04] VITALS (25 sets, daily range): BP systolic 92–183; BP diastolic 50–93
--- NOTE | 2018-12-04 | NUR ---
NURSE NOTES: Sleeping, calm; afebrile, VSS. No distress. Bld sugar 122, Ins gtt 1.5units/h; algorithm 2. Will continue to monitor BSq1h
--- NOTE | 2018-12-04 02:00 | NUR ---
NURSE NOTES: Calm, asleep; BS 115, Ins gtt 1unit/h; algo 2
--- NOTE | 2018-12-04 04:00 | NUR ---
NURSE NOTES: Awake. Voided. Assisted with AM care.Denies pain. c/o nausea; Zofran 4mg IVP given. No BM
[2018-12-04 05:33] LABS: BASOPHILS % (AUTO) 0.9 % (0.0-2.0); EOSINOPHILS % (AUTO) 0.1 % (0.0-3.0); HEMATOCRIT 34.4 % (37.0-47.0); HEMOGLOBIN 11.2 G/DL (12.0-16.0); LYMPHOCYTES % (AUTO) 17.5 % (20.0-45.0); MEAN CORPUSCULAR VOLUME 90 FL (80-99); MONOCYTES % (AUTO) 6.6 % (1.0-10.0); NEUTROPHILS % (AUTO) 74.8 % (45.0-75.0); PLATELET COUNT 305 K/UL (150-450); RED BLOOD COUNT 3.82 M/UL (4.20-5.40); RED CELL DISTRIBUTION WIDTH 13.2 % (11.6-14.8); WHITE BLOOD COUNT 15.4 K/UL (4.8-10.8)
[2018-12-04 05:53] LABS: ALANINE AMINOTRANSFERASE 20 U/L (12-78); ALBUMIN 3.4 G/DL (3.4-5.0); ALBUMIN/GLOBULIN RATIO 0.9 (1.0-2.7); ALKALINE PHOSPHATASE 85 U/L (46-116); ANION GAP 8 mmol/L (5-15); ASPARTATE AMINO TRANSFERASE 15 U/L (15-37); BILIRUBIN,TOTAL 0.7 MG/DL (0.2-1.0); BLOOD UREA NITROGEN 23 mg/dL (7-18); CALCIUM 9.3 MG/DL (8.5-10.1); CARBON DIOXIDE 29 MMOL/L (21-32); CHLORIDE 104 MMOL/L (98-107); CREATININE 1.2 MG/DL (0.55-1.30); PHOSPHORUS 2.4 MG/DL (2.5-4.9); POTASSIUM 3.3 MMOL/L (3.5-5.1); SODIUM 141 MMOL/L (136-145)
[2018-12-04] MEDS: LORazepam 0.5mg tab ORAL PRN ×3 (06:17→18:38)
--- NOTE | 2018-12-04 06:20 | NUR ---
NURSE NOTES: Awake and anxious, BP elevated. Advised to relax. Denies headaches, seizures and no further nausea. IV site patent. Ativan 0.5mg given po
--- NOTE | 2018-12-04 07:06 | General Progress Note ---
Assessment/Plan Problem List: (1) Hyperglycemia ICD Codes: R73.9 - Hyperglycemia, unspecified SNOMED: 05923796 (2) Abdominal pain ICD Codes: R10.9 - Unspecified abdominal pain SNOMED: 35319467 (3) DKA (diabetic ketoacidoses) ICD Codes: E11.10 - Type 2 diabetes mellitus with ketoacidosis without coma SNOMED: 95492855, 430911661 (4) UGI bleed ICD Codes: K92.2 - Gastrointestinal hemorrhage, unspecified SNOMED: 44381728 Assessment/Plan: DKA has resolved abdominal pain and N/V improved - DC insulin gtt - change IVF to NS + 20 meq of KCL at 100 cc/hour - advance diet to diabetic - start Levemir 18 units qam - start Novolog 6 units ac tid - start NISS ac / hs Subjective Allergies: Coded Allergies: No Known Allergies (Unverified , 12/02/18) All Systems: reviewed and negative except above Subjective events noted feeling better in ICU on insulin gtt - required about 1-1.5 units / hour on average she is using Basaglar 5 units at bedtime at home Item Value Date Time Bedside Blood Glucose 114 mg/dl 12/04/18 0600 Bedside Blood Glucose 115 mg/dl 12/04/18 0200 Bedside Blood Glucose 141 mg/dl H 12/03/18 2200 Bedside Blood Glucose 154 mg/dl H 12/03/18 1830 Bedside Blood Glucose 257 mg/dl H 12/03/18 1430 Bedside Blood Glucose 325 mg/dl H 12/03/18 0737 Objective Last 24 Hour Vital Signs Date Time Temp Pulse Resp B/P (MAP) Pulse Ox O2 Delivery O2 Flow Rate FiO2 12/04/18 06:00 101 22 183/90 (121) 95 12/04/18 05:00 102 19 180/81 (114) 94 12/04/18 04:00 100 12/04/18 04:00 98.9 100 18 166/85 (112) 91 12/04/18 04:00 Room Air 12/04/18 03:00 99 18 177/87 (117) 93 12/04/18 02:00 98 13 146/75 (98) 95 12/04/18 01:00 100 19 153/81 (105) 94 12/04/18 00:00 98.7 102 18 158/76 (103) 97 12/04/18 00:00 Room Air 12/04/18 00:00 102 12/03/18 23:00 100 19 132/69 (90) 12/03/18 22:00 99 19 166/76 (106) 12/03/18 21:00 105 15 165/66 (99) 97 12/03/18 20:00 Room Air 12/03/18 20:00 102 12/03/18 20:00 102 12 148/76 (100) 95 102 12/03/18 19:00 98.7 100 17 152/75 (100) 95 100 12/03/18 16:00 Room Air 12/03/18 16:00 109 12/03/18 16:00 98.8 102 17 144/91 (108) 99 12/03/18 13:00 109 24 123/75 (91) 99 12/03/18 12:00 98.9 109 17 119/62 (81) 99 12/03/18 12:00 111 12/03/18 12:00 Room Air 12/03/18 09:00 Room Air 12/03/18 08:24 98.7 20 159/85 (109) 98 12/03/18 08:00 109 Intake and Output 12/03/18 12/04/18 19:00 07:00 Intake Total 1205 ml 1804.5 ml Output Total 300 ml Balance 905 ml 1804.5 ml Intake Oral 180 ml 540 ml IV Total 1025 ml 1264.5 ml Emesis 300 ml # Voids 101 Laboratory Tests 12/03/18 10:41: Lactic Acid Level 2.50H 12/03/18 12:40: Urine Color Pale yellow, Urine Appearance Clear, Urine pH 5, Urine Specific [place] 1.015, Urine Protein 2+H, Urine Glucose (UA) 4+H, Urine Ketones 4+H, Urine Blood Negative, Urine Nitrite Negative, Urine Bilirubin Negative, Urine Urobilinogen Normal, Urine Leukocyte Esterase 1+H, Urine RBC 0-2, Urine WBC 2-4 , Urine Squamous Epithelial Cells Occasional, Urine Bacteria Occasional, Urine Eosinophils None seen, Urine Osmolality 653H, Urine Random Creatinine [Pending] , Urine Random Microalbumin [Pending], Urine Random Sodium 42, Urine Microalbumin/Creatinine Ratio [Pending] 12/03/18 14:25: Lactic Acid Level 1.10, Uric Acid 6.7, Total Creatine Kinase 47 12/04/18 04:40: White Blood Count 15.4H, Red Blood Count 3.82L, Hemoglobin 11.2L, Hematocrit 34.4L, Mean Corpuscular Volume 90, Mean Corpuscular Hemoglobin 29.2, Mean Corpuscular Hemoglobin Concent 32.5, Red Cell Distribution Width 13.2, Platelet Count 305, Mean Platelet Volume 8.6, Neutrophils (%) (Auto) 74.8, Lymphocytes (% ) (Auto) 17.5L, Monocytes (%) (Auto) 6.6, Eosinophils (%) (Auto) 0.1, Basophils (%) (Auto) 0.9, Prothrombin Time 10.4, Prothromb Time International Ratio 1.0, Activated Partial Thromboplast Time 24, Sodium Level 141, Potassium Level 3.3L, Chloride Level 104, Carbon Dioxide Level 29, Anion Gap 8, Blood Urea Nitrogen 23H, Creatinine 1.2, Estimat Glomerular Filtration Rate 47.9, Glucose Level 132# H, Calcium Level 9.3, Phosphorus Level 2.4L, Magnesium Level 1.5L, Total Bilirubin 0.7, Aspartate Amino Transf (AST/SGOT) 15, Alanine Aminotransferase ( ALT/SGPT) 20, Alkaline Phosphatase 85, Total Protein 7.4, Albumin 3.4, Globulin 4.0, Albumin/Globulin Ratio 0.9L, Lipase 221 Height (Feet): 5 Height (Inches): 3.00 Weight (Pounds): 164 General Appearance: no apparent distress Neck: non-tender Cardiovascular: normal rate Respiratory/Chest: lungs clear Abdomen: normal bowel sounds Pelvis: normal external exam Edema: no edema noted Arm (L), no edema noted Arm (R), no edema noted Leg (L), no edema noted Leg (R), no edema noted Pedal (L), no edema noted Pedal (R), no edema noted Generalized Objective Current Medications Medications (Trade) Dose Ordered Sig/Xander Route PRN Reason Start Time Stop Time Status Last Admin Dose Admin Acetaminophen (Tylenol) 650 mg Q4H PRN ORAL fever (temp>100.5F) 12/03/18 11:00 01/01/19 22:59 12/03/18 17:12 Dextrose (Dextrose 50%) 25 ml Q30M PRN IV HYPOGLYCEMIA 12/03/18 14:00 01/02/19 13:59 Dextrose (Dextrose 50%) 50 ml Q30M PRN IV HYPOGLYCEMIA 12/03/18 14:00 01/02/19 13:59 Diphenhydramine HCl (Benadryl) 25 mg Q6H PRN ORAL Itching/Pruritis 12/03/18 11:00 01/01/19 22:59 12/03/18 14:11 Docusate Sodium (Colace) 100 mg TWICE A DAY ORAL 12/03/18 18:00 01/02/19 17:59 12/03/18 17:07 Gabapentin (Neurontin) 300 mg BEDTIME ORAL 12/03/18 21:00 01/02/19 20:59 12/03/18 20:35 Insulin Human Regular (NovoLIN R) 5 units PRN PRN IV BS 200-299 12/03/18 13:00 01/02/19 12:59 12/03/18 15:54 Insulin Human Regular (NovoLIN R) 10 units PRN PRN IV BS=>300 12/03/18 14:00 01/02/19 13:59 Insulin Human Regular 100 units/ Sodium Chloride 100 ml @ 0 mls/hr Q24H IV 12/03/18 21:45 01/02/19 18:29 12/03/18 21:51 Lorazepam (Ativan) 0.5 mg Q6H PRN ORAL For Anxiety 12/03/18 10:30 12/10/18 10:29 12/04/18 06:17 Miscellaneous Medication (Insulin Rate Change) 1 ea PRN PRN MISC Hyperglycemia 12/03/18 14:00 01/02/19 13:59 Ondansetron HCl (Zofran) 4 mg Q6H PRN IVP Nausea & Vomiting 12/03/18 11:00 01/01/19 22:59 12/04/18 05:10 Pantoprazole (Protonix) 40 mg EVERY 12 HOURS ORAL 12/03/18 10:30 01/02/19 10:29 12/03/18 20:35 Polyethylene Glycol (Miralax) 17 gm BEDTIME ORAL 12/03/18 21:00 01/02/19 20:59 12/03/18 20:34 Sertraline HCl (Zoloft) 100 mg DAILY ORAL 12/03/18 09:00 01/02/19 08:59 12/03/18 10:42 Sodium Chloride 1,000 ml @ 125 mls/hr Q8H IV 12/03/18 11:00 01/02/19 10:59 12/04/18 03:34 Temazepam (Restoril) 15 mg HSPRN PRN ORAL Insomnia 12/03/18 21:00 12/09/18 20:59 12/03/18 21:39 Diallo Polo MD December 04, 2018 07:06
--- NOTE | 2018-12-04 07:30 | Consultation ---
DATE OF CONSULTATION: 12/03/2018 CONSULTING PHYSICIAN: Jaguar Schilling M.D. HISTORY OF PRESENT ILLNESS: This is a 48-year-old female with a history of major depressive disorder and anxiety disorder, who was admitted to the hospital due to vomiting up material. The patient has been having other medical comorbidities, which include diabetes type 2, hypertension, dyslipidemia, chronic lower back pain, history of back and ankle surgery. During the evaluation, the patient was sitting in bed, calm; however, she is scatter-minded and poor historian and was unable to provide any meaningful information. The patient stated that she has been taking benzodiazepine for anxiety. In the hospital, she has been given Ativan. PAST PSYCHIATRIC HISTORY: Anxiety disorder and depression. She denies any psychiatric hospitalization. She is on Zoloft, Ativan, and Restoril. PAST MEDICAL HISTORY: Significant for diabetes mellitus, dyslipidemia, and hypertension. ALLERGIES: No known drug allergies. SUBSTANCE ABUSE HISTORY: No known history of illicit drug use or alcohol. MENTAL STATUS EXAMINATION: The patient is alert, oriented times self, place, and situation. She did not know the date nor the year. . Mood is neutral. Affect is flat. Thought process, there is a paucity of thought content. Thought content, no suicidal or homicidal ideation. ASSESSMENT: [place] I Major depressive disorder. Anxiety disorder. [place] II Deferred. [place] III As above. [place] IV Low. [place] V PLAN: 1. The patient will be continued on Zoloft 100 mg in the morning. 2. Continue the Ativan p.r.n. 3. Continue Restoril. Jaguar Schilling M.D. DR: KHALIDA JOB#: [id number] CC:
--- NOTE | 2018-12-04 07:32 | NUR ---
HAND-OFF: Report given to Rolan Nelson.
--- NOTE | 2018-12-04 07:33 | NUR ---
NURSE NOTES: Received patient from [facility]. Patient VS stable at this time. Patient sleeping at this time. Patient reported to be oriented times 3 with flat affect. Patient has anxiety and requests Ativan frequently. Patient has history of anxiety. Patient was admitted to ICU for high glucose. Patient's blood glucose is controlled at this time. Insulin Drip has been discontinued. Will follow up with SQ insulin that has been ordered. Patient has Mg of 1.5 this morning. and phosphorous of 2.4. Will ask MD for coverage when he rounds on the patient. Patient showing sinus rhythm on the monitor at this time. Patient hypertensive at this time with BP fo 168/81. Patient has history of hypertension. Patient on room air with oxygen saturation of 95% at this time. Patient is reportedly constipated. Will follow up with medications if applicable. Patient skin intact. patient has a right forearm 18G PIV that is patent, asymptomatic, and running normal saline at 125mL/hr at this time. Patient bed in low position with bed alarm on and call light in reach at this time.
--- NOTE | 2018-12-04 07:59 | Diagnostic Imaging Report ---
APPROVED REPORT CPT Code: 22947 Present Symptoms Lower Extremity Pain: Bilateral BILATERAL: Imaging reveals a patent deep venous system bilaterally. There is no evidence of thrombus within the common femoral, superficial femoral, popliteal or tibial segments. The greater saphenous veins are within normal limits. Doppler indicates normal spontaneous flow within these segments.
[2018-12-04] MEDS: NS w/KCl 20mEq 1000ml 1,000 ML IV SCH ×2 (08:21→17:46)
[2018-12-04] MEDS: Docusate 100mg cap ORAL SCH ×2 (08:21→17:46)
[2018-12-04] MEDS: Sertraline 100mg tab ORAL SCH (08:22)
--- NOTE | 2018-12-04 08:27 | General Progress Note ---
Assessment/Plan Problem List: (1) DKA (diabetic ketoacidoses) ICD Codes: E11.10 - Type 2 diabetes mellitus with ketoacidosis without coma SNOMED: 52596184, 104113155 (2) Constipation ICD Codes: K59.00 - Constipation, unspecified SNOMED: 04728029 Assessment/Plan: colace and miralax add lactulose management of DKA fu labs Subjective ROS Limited/Unobtainable: Yes Allergies: Coded Allergies: No Known Allergies (Unverified , 12/02/18) Subjective c/o nausea Objective Last 24 Hour Vital Signs Date Time Temp Pulse Resp B/P (MAP) Pulse Ox O2 Delivery O2 Flow Rate FiO2 12/04/18 08:00 Room Air 12/04/18 08:00 99 12/04/18 07:00 98 17 168/81 (110) 96 12/04/18 06:00 101 22 183/90 (121) 95 12/04/18 05:00 102 19 180/81 (114) 94 12/04/18 04:00 100 12/04/18 04:00 98.9 100 18 166/85 (112) 91 12/04/18 04:00 Room Air 12/04/18 03:00 99 18 177/87 (117) 93 12/04/18 02:00 98 13 146/75 (98) 95 12/04/18 01:00 100 19 153/81 (105) 94 12/04/18 00:00 98.7 102 18 158/76 (103) 97 12/04/18 00:00 Room Air 12/04/18 00:00 102 12/03/18 23:00 100 19 132/69 (90) 12/03/18 22:00 99 19 166/76 (106) 12/03/18 21:00 105 15 165/66 (99) 97 12/03/18 20:00 Room Air 12/03/18 20:00 102 12/03/18 20:00 102 12 148/76 (100) 95 102 12/03/18 19:00 98.7 100 17 152/75 (100) 95 100 12/03/18 16:00 Room Air 12/03/18 16:00 109 12/03/18 16:00 98.8 102 17 144/91 (108) 99 12/03/18 13:00 109 24 123/75 (91) 99 12/03/18 12:00 98.9 109 17 119/62 (81) 99 12/03/18 12:00 111 12/03/18 12:00 Room Air 12/03/18 09:00 Room Air Intake and Output 12/03/18 12/04/18 19:00 07:00 Intake Total 1205 ml 1804.5 ml Output Total 300 ml Balance 905 ml 1804.5 ml Intake Oral 180 ml 540 ml IV Total 1025 ml 1264.5 ml Emesis 300 ml # Voids 101 Laboratory Tests 12/03/18 10:41: Lactic Acid Level 2.50H 12/03/18 12:40: Urine Color Pale yellow, Urine Appearance Clear, Urine pH 5, Urine Specific [place] 1.015, Urine Protein 2+H, Urine Glucose (UA) 4+H, Urine Ketones 4+H, Urine Blood Negative, Urine Nitrite Negative, Urine Bilirubin Negative, Urine Urobilinogen Normal, Urine Leukocyte Esterase 1+H, Urine RBC 0-2, Urine WBC 2-4 , Urine Squamous Epithelial Cells Occasional, Urine Bacteria Occasional, Urine Eosinophils None seen, Urine Osmolality 653H, Urine Random Creatinine [Pending] , Urine Random Microalbumin [Pending], Urine Random Sodium 42, Urine Microalbumin/Creatinine Ratio [Pending] 12/03/18 14:25: Lactic Acid Level 1.10, Uric Acid 6.7, Total Creatine Kinase 47 12/04/18 04:40: White Blood Count 15.4H, Red Blood Count 3.82L, Hemoglobin 11.2L, Hematocrit 34.4L, Mean Corpuscular Volume 90, Mean Corpuscular Hemoglobin 29.2, Mean Corpuscular Hemoglobin Concent 32.5, Red Cell Distribution Width 13.2, Platelet Count 305, Mean Platelet Volume 8.6, Neutrophils (%) (Auto) 74.8, Lymphocytes (% ) (Auto) 17.5L, Monocytes (%) (Auto) 6.6, Eosinophils (%) (Auto) 0.1, Basophils (%) (Auto) 0.9, Prothrombin Time 10.4, Prothromb Time International Ratio 1.0, Activated Partial Thromboplast Time 24, Sodium Level 141, Potassium Level 3.3L, Chloride Level 104, Carbon Dioxide Level 29, Anion Gap 8, Blood Urea Nitrogen 23H, Creatinine 1.2, Estimat Glomerular Filtration Rate 47.9, Glucose Level 132# H, Calcium Level 9.3, Phosphorus Level 2.4L, Magnesium Level 1.5L, Total Bilirubin 0.7, Aspartate Amino Transf (AST/SGOT) 15, Alanine Aminotransferase ( ALT/SGPT) 20, Alkaline Phosphatase 85, Total Protein 7.4, Albumin 3.4, Globulin 4.0, Albumin/Globulin Ratio 0.9L, Lipase 221 Height (Feet): 5 Height (Inches): 3.00 Weight (Pounds): 164 General Appearance: alert EENT: normal ENT inspection Neck: supple Cardiovascular: normal rate Respiratory/Chest: decreased breath sounds Abdomen: normal bowel sounds, non tender, soft Extremities: non-tender Shayne Medina MD December 04, 2018 08:27
[2018-12-04] MEDS: NovoLOG Insulin Flexpen SUBQ SCH ×6 (08:29→20:41)
[2018-12-04] MEDS: Levemir Flexpen SUBQ SCH (08:30)
--- NOTE | 2018-12-04 09:30 | NUR ---
NURSE NOTES: Patient complaining of pain and nausea at this time. Patient does not have pain medication ordered. Will follow up with MD. Patient bed in low position with bed alarm on and call light in reach. Patient voided once in the bed hernandez at this time. Patient still complains that she is unable to have a bowel movement.
[2018-12-04] MEDS: Lactulose 10gm/15ml UDC ORAL SCH ×3 (09:32→17:46)
--- NOTE | 2018-12-04 10:07 | NUR ---
NURSE NOTES: Spoke with Dr Dixon regarding patient's complaint of pain, low magnesium of 1.5, and low phosphorous of 2.[address] Dixon ordered 2g Magnesium IVPB, morphine 15mg PO Q6Hr PRN for pain, CBC/CMP/Mg/P labs for tomorrow AM, and no order for phosphorous coverage.
[2018-12-04] MEDS: MS Contin 15mg tab ORAL PRN ×2 (10:21→17:55)
[2018-12-04] MEDS ORDERED: Tubing IV Secondary IV ONE ×2 (10:30→15:50)
[2018-12-04] MEDS ORDERED: NS 275ml ONE (10:30)
[2018-12-04] MEDS ORDERED: D5 1/2NS 1000ml IV ONE (10:35)
--- NOTE | 2018-12-04 11:30 | NUR ---
NURSE NOTES: Patient states that her pain level is now 6. Pain level was 9 prior to morphine administration. Patient denies nausea at this time. Patient blood pressure elevated at 144/67. Patient bed in low position with bed alarm on. Patient ate 25% of breakfast tray. blood sugar now 150. Administered novolog per protocol.
--- NOTE | 2018-12-04 13:30 | NUR ---
NURSE NOTES: Patient complaining of nausea at this time. Zofran administered about an hour ago. Patient vomited x1. bed in low position with bed alarm on. VS stable.
--- NOTE | 2018-12-04 13:43 | NUR ---
CASE MANAGEMENT: REVIEW SI: HYPERGLYCEMIA . DKA . UGI BLEED T 99.1 HR 102 RR 18 BP 170/90 SAT 97% ROOM AIR WBC 15.4 H/H 11.2/34.4 K 3.3 PHOS 2.4 MAG 1.5 IS: LACTULOSE PO TID NS IVF @ 100ML/HR ICU STATUS DCP: PATIENT IS FROM [facility]
--- NOTE | 2018-12-04 15:20 | NUR ---
NURSE NOTES: Patient vomited x1. Patient nausea unrelieved by zofran. Patient denies pain. Patient denies anxiety. Patient showing no signs of acute distress. Patient was able to have a small liquid bowel movement. Patient still complaining that she is constipated. Will continue to monitor and administer Lactulose and colace as ordered.
--- NOTE | 2018-12-04 16:30 | NUR ---
NURSE NOTES: Patient blood pressure elevated at 154/78. No solar designer on the case. Dr Dixon aware. Patient blood sugar 78. Held NovoLOG sliding scale and 6 units standard dose due now. Gave patient one container of 118mL orange juice. Patient ate 25% of breakfast but did not eat her lunch due to nausea and vomiting. Will continue to monitor blood sugar and encourage PO intake.
--- NOTE | 2018-12-04 16:59 | Internal Med Progress Note ---
Subjective Date of Service: December 04, 2018 Physician Name Mukund Cavazos Attending Physician Donald Dixon MD Current Medications Medications (Trade) Dose Ordered Sig/Xander Route PRN Reason Start Time Stop Time Status Last Admin Dose Admin Acetaminophen (Tylenol) 650 mg Q4H PRN ORAL fever (temp>100.5F) 12/03/18 11:00 01/01/19 22:59 12/03/18 17:12 Dextrose (Dextrose 50%) 25 ml Q30M PRN IV Hypoglycemia 12/04/18 07:15 01/03/19 07:14 Dextrose (Dextrose 50%) 50 ml Q30M PRN IV Hypoglycemia 12/04/18 07:15 01/03/19 07:14 Diphenhydramine HCl (Benadryl) 25 mg Q6H PRN ORAL Itching/Pruritis 12/03/18 11:00 01/01/19 22:59 12/03/18 14:11 Docusate Sodium (Colace) 100 mg TWICE A DAY ORAL 12/03/18 18:00 01/02/19 17:59 12/04/18 08:21 Gabapentin (Neurontin) 300 mg BEDTIME ORAL 12/03/18 21:00 01/02/19 20:59 12/03/18 20:35 Insulin Aspart (NovoLOG) BEFORE MEALS AND HS SUBQ 12/04/18 11:30 01/03/19 11:29 12/04/18 11:27 Insulin Aspart (NovoLOG) 6 units NOVOTIAC SUBQ 12/04/18 08:00 01/03/19 07:59 12/04/18 11:27 Insulin Detemir (Levemir) 18 units DAILY SUBQ 12/04/18 09:00 01/03/19 08:59 12/04/18 08:30 Lactulose (Cephulac) 10 gm THREE TIMES A DAY ORAL 12/04/18 09:00 01/03/19 08:59 12/04/18 12:38 Lorazepam (Ativan) 0.5 mg Q6H PRN ORAL For Anxiety 12/03/18 10:30 12/10/18 10:29 12/04/18 12:38 Morphine Sulfate (MS Contin) 15 mg Q6H PRN ORAL Severe Pain (Pain Scale 7-10) 12/04/18 10:15 12/11/18 10:14 12/04/18 10:21 Ondansetron HCl (Zofran) 4 mg Q6H PRN IVP Nausea & Vomiting 12/03/18 11:00 01/01/19 22:59 12/04/18 12:38 Pantoprazole (Protonix) 40 mg EVERY 12 HOURS ORAL 12/03/18 10:30 01/02/19 10:29 12/04/18 08:22 Polyethylene Glycol (Miralax) 17 gm BEDTIME ORAL 12/03/18 21:00 01/02/19 20:59 12/03/18 20:34 Sertraline HCl (Zoloft) 100 mg DAILY ORAL 12/03/18 09:00 01/02/19 08:59 12/04/18 08:22 Sodium Chloride 1,000 ml @ 100 mls/hr Q10H IV 12/04/18 08:00 01/03/19 07:59 12/04/18 08:21 Temazepam (Restoril) 15 mg HSPRN PRN ORAL Insomnia 12/03/18 21:00 12/09/18 20:59 12/03/18 21:39 Allergies: Coded Allergies: No Known Allergies (Unverified , 12/02/18) ROS Limited/Unobtainable: No Constitutional: Reports: no symptoms HEENT: Reports: no symptoms Cardiovascular: Reports: no symptoms Respiratory: Reports: no symptoms Gastrointestinal/Abdominal: Reports: no symptoms Genitourinary: Reports: no symptoms Neurologic/Psychiatric: Reports: no symptoms Subjective 48 YO F admitted with hyperglycemia and upper GI bleed. Cover for Int [facility]-Dr Dixon. ICU Objective Last Vital Signs Date Time Temp Pulse Resp B/P (MAP) Pulse Ox O2 Delivery O2 Flow Rate FiO2 12/04/18 16:00 98.0 87 19 154/78 (103) 93 12/04/18 16:00 Room Air Laboratory Tests Test 12/04/18 04:40 White Blood Count 15.4 K/UL (4.8-10.8) H Red Blood Count 3.82 M/UL (4.20-5.40) L Hemoglobin 11.2 G/DL (12.0-16.0) L Hematocrit 34.4 % (37.0-47.0) L Mean Corpuscular Volume 90 FL (80-99) Mean Corpuscular Hemoglobin 29.2 PG (27.0-31.0) Mean Corpuscular Hemoglobin Concent 32.5 G/DL (32.0-36.0) Red Cell Distribution Width 13.2 % (11.6-14.8) Platelet Count 305 K/UL (150-450) Mean Platelet Volume 8.6 FL (6.5-10.1) Neutrophils (%) (Auto) 74.8 % (45.0-75.0) Lymphocytes (%) (Auto) 17.5 % (20.0-45.0) L Monocytes (%) (Auto) 6.6 % (1.0-10.0) Eosinophils (%) (Auto) 0.1 % (0.0-3.0) Basophils (%) (Auto) 0.9 % (0.0-2.0) Prothrombin Time 10.4 SEC (9.30-11.50) Prothromb Time International Ratio 1.0 (0.9-1.1) Activated Partial Thromboplast Time 24 SEC (23-33) Sodium Level 141 MMOL/L (136-145) Potassium Level 3.3 MMOL/L (3.5-5.1) L Chloride Level 104 MMOL/L (98-107) Carbon Dioxide Level 29 MMOL/L (21-32) Anion Gap 8 mmol/L (5-15) Blood Urea Nitrogen 23 mg/dL (7-18) H Creatinine 1.2 MG/DL (0.55-1.30) Estimat Glomerular Filtration Rate 47.9 mL/min (>60) Glucose Level 132 MG/DL (74-106) #H Calcium Level 9.3 MG/DL (8.5-10.1) Phosphorus Level 2.4 MG/DL (2.5-4.9) L Magnesium Level 1.5 MG/DL (1.8-2.4) L Total Bilirubin 0.7 MG/DL (0.2-1.0) Aspartate Amino Transf (AST/SGOT) 15 U/L (15-37) Alanine Aminotransferase (ALT/SGPT) 20 U/L (12-78) Alkaline Phosphatase 85 U/L (46-116) Total Protein 7.4 G/DL (6.4-8.2) Albumin 3.4 G/DL (3.4-5.0) Globulin 4.0 g/dL Albumin/Globulin Ratio 0.9 (1.0-2.7) L Lipase 221 U/L (73-393) Microbiology Date/Time Source Procedure Growth Status 12/02/18 23:30 Rectum Received Intake and Output 12/03/18 12/04/18 18:59 06:59 Intake Total 1205 ml 1804.5 ml Output Total 300 ml Balance 905 ml 1804.5 ml Intake Oral 180 ml 540 ml IV Total 1025 ml 1264.5 ml Emesis 300 ml # Voids 101 Objective PHYSICAL EXAMINATION: GENERAL: The patient is awake and responsive, in no acute distress. HEAD AND NECK: Pupils are equal and reactive to light. Extraocular movements intact. Neck was supple. No JVD. LUNGS: Good air entry. No wheeze or rales. HEART: S1, S2. Tachycardic. No murmur or gallops. ABDOMEN: Soft and nondistended. Tenderness on deep palpation in the epigastric area. No rebound tenderness. No fluid shift. Midline surgical scar was noted from previous surgery. EXTREMITIES: No cyanosis, clubbing, or edema. NEUROLOGIC: Cranial nerves II to XII grossly intact. Motor is 5/5 in all extremities. Gait is intact. RECTAL: Refused and deferred. GENITOURINARY: Refused and deferred. PSYCHIATRIC: Mood and affect is anxious. Assessment/Plan Assessment/Plan ASSESSMENT: 1. Diabetic ketoacidosis. 2. Upper gastrointestinal bleed. 3. Severe dehydration. 4. Acute renal failure on chronic. 5. Uncontrolled diabetes type 2. 6. Dyslipidemia. 7. Hypotension, most likely secondary to volume depletion. 8. Chronic lumbar disk disease. PLAN: 1. Admit the patient to ICU. We will follow up with the DKA protocol. Discussed case with Dr. Morgan, Pulmonary Critical Care and Dr. Polo from Endocrine. 2. We will follow up with Dr. Mccoy from Gastroenterology. Clear liquid diet. 3. Code status is Full Code. DVT prophylaxis, SCDs. 4. Start the patient on Protonix twice a day and Ativan as needed. Monitor laboratory. Monitor blood glucose level closely. Mukund Cavazos MD December 04, 2018 16:59
--- NOTE | 2018-12-04 18:17 | NUR ---
NURSE NOTES: Patient complaining that she is unable to sleep. Patient witnessed sleeping on and off throughout the day. Patient does not feel she is getting restful sleep. Patient has medication for insomnia to be given PRN QHS. Will endorse to the next nurse that the patient wants this medication to be given. Patient HR 88, BP elevated at 159/94, RR 17, oxygen saturation 99%. Patient pain level 7/10 at this time. Patient given Morphine 15mg PO as ordered. Patient requesting ativan for anxiety and zofran for nausea. Will follow and administer when they are due. Patient ate 25% of dinner tray.
--- NOTE | 2018-12-04 19:15 | NUR ---
HAND-OFF: Report given to CAPRI Rice. Patient VS stable at this time with no sign of acute distress. Patient sleeping at this time.
--- NOTE | 2018-12-04 19:38 | NUR ---
NURSE NOTES: PATIENT ALERT, ORIENTED, DENIED PAIN OR DISTRESS AT THIS TIME. RESPIRATION REGULAR, O2 SATURATION ON ROOM AIR OVER 95% NOTED, ABDOMEN SOFT, NO BOWEL MOVEMENT STATUS, PERIPHERAL LINE TO RIGHT FA 18G INTACT AND PATENT, ONGOING NS W/ 20MEQ KCL AT 100ML/HR, ON SCD'S TO BOTH LOWER LEGS, PROVIDED CALL LIGHT WITHIN REACH, MADE LOWER BED POSITION, WILL CONTINUE TO MONITOR.
[2018-12-04] MEDS: Miralax 17gm pkt ORAL SCH (20:39)
--- NOTE | 2018-12-04 22:00 | NUR ---
NURSE NOTES: PATIENT ASLEEP STATUS, NO ACUTE DISTRESS NOTED AT THIS TIME.
--- NOTE | 2018-12-04 23:45 | Progress Note ---
DATE: 12/04/2018 SUBJECTIVE: The patient is still . Continues to be anxious and asking for Ativan. The patient was more lucid today. She was able to answer question more clearly. The patient is concerned about her medical condition. She also has multiple psychosocial stressors. MENTAL STATUS EXAMINATION: The patient is alert and oriented x4, pleasant. Mood is anxious. Affect is flat. Thought process, there is a paucity of thought content. Thought content, no suicidal or homicidal ideations. Memory, concentration, and attention are impaired. Insight and judgment is fair. ASSESSMENT: Anxiety disorder. PLAN: 1. We will continue the p.r.n. Ativan. 2. Increase Zoloft. 3. Provide the patient with reality orientation and supportive therapy. 4. Home. Jaguar Schilling M.D. DR: DANITA JOB#: [id number] CC:
[2018-12-05] VITALS (14 sets, daily range): BP systolic 88–177; BP diastolic 49–122
--- NOTE | 2018-12-05 00:10 | NUR ---
NURSE NOTES: NO PAIN OR DISTRESS NOTED AT THIS TIME.
--- NOTE | 2018-12-05 03:00 | NUR ---
NURSE NOTES: NO PAIN OR DISTRESS NOTED AT THIS TIME.
[2018-12-05] MEDS: NS w/KCl 20mEq 1000ml 1,000 ML IV SCH ×2 (03:56→14:01)
--- NOTE | 2018-12-05 04:40 | NUR ---
NURSE NOTES: MORNING CARE WAS DONE, NO BOWEL MOVEMENT.
--- NOTE | 2018-12-05 05:15 | NUR ---
NURSE NOTES: PATIENT COMPLAINED CHEST PAIN THAT MONITORED EKG, NORMAL SINUS RHYTHM NOTED.
--- NOTE | 2018-12-05 05:20 | NUR ---
NURSE NOTES: NO VILLA OR DISCOMFORT NOTED AT THIS TIME, WILL CONTINUE TO MONITOR. Addendum: 12/05/18 at 0719 sanchez GARBER RN NURSE NOTES: NO PAIN OR DISCOMFORT NOTED AT THIS TIME, WILL CONTINUE TO MONITOR.
[2018-12-05 05:58] LABS: BASOPHILS % (AUTO) 1.6 % (0.0-2.0); EOSINOPHILS % (AUTO) 0.9 % (0.0-3.0); HEMATOCRIT 34.7 % (37.0-47.0); HEMOGLOBIN 11.2 G/DL (12.0-16.0); MEAN CORPUSCULAR VOLUME 91 FL (80-99); MONOCYTES % (AUTO) 6.5 % (1.0-10.0); PLATELET COUNT 121 K/UL (150-450); RED BLOOD COUNT 3.81 M/UL (4.20-5.40); RED CELL DISTRIBUTION WIDTH 13.3 % (11.6-14.8)
[2018-12-05] MEDS: NovoLOG Insulin Flexpen SUBQ SCH ×5 (06:03→21:07)
[2018-12-05 06:22] LABS: ALANINE AMINOTRANSFERASE 24 U/L (12-78); ALBUMIN 3.2 G/DL (3.4-5.0); ALBUMIN/GLOBULIN RATIO 0.9 (1.0-2.7); ALKALINE PHOSPHATASE 84 U/L (46-116); ANION GAP 6 mmol/L (5-15); ASPARTATE AMINO TRANSFERASE 26 U/L (15-37); BILIRUBIN,TOTAL 0.6 MG/DL (0.2-1.0); BLOOD UREA NITROGEN 12 mg/dL (7-18); CALCIUM 9.1 MG/DL (8.5-10.1); CARBON DIOXIDE 29 MMOL/L (21-32); CHLORIDE 103 MMOL/L (98-107); CREATININE 1.2 MG/DL (0.55-1.30); PHOSPHORUS 2.7 MG/DL (2.5-4.9); POTASSIUM 4.1 MMOL/L (3.5-5.1); SODIUM 138 MMOL/L (136-145)
--- NOTE | 2018-12-05 06:30 | NUR ---
NURSE NOTES: PATIENT DENIED PAIN AT THIS TIME.
--- NOTE | 2018-12-05 07:11 | NUR ---
HAND-OFF: Report given to CAPRI AMRINELLI.
--- NOTE | 2018-12-05 08:00 | NUR ---
NURSE NOTES: Received patient a&o x4. VSS. Room air saturating 100%. No distress noted. Denies pain or discomfort. Voided in a bed hernandez. R forearm 19 gauge intact. NS with 20 KCL at 100. Lung sounds clear bilaterally. Hypoactive bowel sounds present in all 4 quadrants. No tenderness noted. Will continue to monitor patient.
--- NOTE | 2018-12-05 08:57 | General Progress Note ---
Assessment/Plan Problem List: (1) DKA (diabetic ketoacidoses) ICD Codes: E11.10 - Type 2 diabetes mellitus with ketoacidosis without coma SNOMED: 25563330, 652661488 (2) Constipation ICD Codes: K59.00 - Constipation, unspecified SNOMED: 21834551 Assessment/Plan: colace and miralax lactulose management of DKA fu labs getting transferred out of ICU Subjective ROS Limited/Unobtainable: Yes Allergies: Coded Allergies: No Known Allergies (Unverified , 12/02/18) Subjective c/o nausea Objective Last 24 Hour Vital Signs Date Time Temp Pulse Resp B/P (MAP) Pulse Ox O2 Delivery O2 Flow Rate FiO2 12/05/18 07:00 80 19 145/81 (102) 98 12/05/18 06:00 77 12 150/122 (131) 96 12/05/18 05:00 81 15 150/79 (102) 96 12/05/18 04:00 97.8 89 15 133/72 (92) 94 12/05/18 04:00 Room Air 12/05/18 03:34 72 12/05/18 03:00 71 15 95/49 (64) 93 12/05/18 02:00 72 12 91/50 (64) 92 12/05/18 01:00 72 12 88/49 (62) 94 12/05/18 00:00 73 12/05/18 00:00 97.9 73 14 96/49 (65) 94 12/05/18 00:00 Room Air 12/04/18 23:00 73 14 92/50 (64) 93 12/04/18 22:00 83 16 141/74 (96) 95 12/04/18 21:30 84 16 169/84 (112) 96 12/04/18 21:00 90 16 181/88 (119) 97 12/04/18 20:00 Room Air 12/04/18 20:00 98.0 88 17 124/74 (91) 97 12/04/18 20:00 87 12/04/18 19:00 86 17 147/71 (96) 97 12/04/18 18:00 89 17 158/77 (104) 97 12/04/18 17:00 85 15 158/77 (104) 97 12/04/18 16:00 98.0 87 19 154/78 (103) 93 5/18/19 16:00 Room Air 12/04/18 16:00 82 12/04/18 15:00 87 21 145/70 (95) 96 12/04/18 14:00 84 15 108/52 (70) 94 12/04/18 13:00 84 12 144/67 (92) 93 12/04/18 12:00 87 12/04/18 12:00 Room Air 12/04/18 12:00 98.3 87 15 165/86 (112) 93 12/04/18 11:00 103 13 146/93 (110) 99 12/04/18 10:00 97 13 170/90 (116) 97 12/04/18 09:00 96 13 170/90 (116) 98 Intake and Output 12/04/18 12/05/18 19:00 07:00 Intake Total 2005 ml 1560 ml Output Total 550 ml 750 ml Balance 1455 ml 810 ml Intake Oral 580 ml 360 ml IV Total 1425 ml 1200 ml Output Urine Total 300 ml 750 ml Emesis 250 ml # Voids 2 # Bowel Movements 2 Laboratory Tests 12/05/18 05:30: White Blood Count 15.0H, Red Blood Count 3.81L, Hemoglobin 11.2L, Hematocrit 34.7L, Mean Corpuscular Volume 91, Mean Corpuscular Hemoglobin 29.3, Mean Corpuscular Hemoglobin Concent 32.2, Red Cell Distribution Width 13.3, Platelet Count 121#L, Mean Platelet Volume 10.1, Neutrophils (%) (Auto) 63.0, Lymphocytes (%) (Auto) 28.0, Monocytes (%) (Auto) 6.5, Eosinophils (%) (Auto) 0.9, Basophils (%) (Auto) 1.6, Sodium Level 138, Potassium Level 4.1, Chloride Level 103, Carbon Dioxide Level 29, Anion Gap 6, Blood Urea Nitrogen 12, Creatinine 1.2, Estimat Glomerular Filtration Rate 47.9, Glucose Level 163H, Calcium Level 9.1, Phosphorus Level 2.7, Magnesium Level 2.0, Total Bilirubin 0.6, Aspartate Amino Transf (AST/SGOT) 26, Alanine Aminotransferase (ALT/SGPT) 24, Alkaline Phosphatase 84, Total Protein 6.9, Albumin 3.2L, Globulin 3.7, Albumin/Globulin Ratio 0.9L Height (Feet): 5 Height (Inches): 3.00 Weight (Pounds): 162 General Appearance: alert EENT: normal ENT inspection Neck: supple Cardiovascular: normal rate Respiratory/Chest: decreased breath sounds Abdomen: normal bowel sounds, non tender, soft Extremities: non-tender Shayne Medina MD December 05, 2018 08:57
[2018-12-05] MEDS: Levemir Flexpen SUBQ SCH (09:00)
[2018-12-05] MEDS ORDERED: Sertraline 50mg tab ORAL SCH (09:00)
--- NOTE | 2018-12-05 09:09 | General Progress Note ---
Assessment/Plan Problem List: (1) Hyperglycemia ICD Codes: R73.9 - Hyperglycemia, unspecified SNOMED: 97941526 (2) Abdominal pain ICD Codes: R10.9 - Unspecified abdominal pain SNOMED: 16342865 (3) DKA (diabetic ketoacidoses) ICD Codes: E11.10 - Type 2 diabetes mellitus with ketoacidosis without coma SNOMED: 51436877, 836353644 (4) UGI bleed ICD Codes: K92.2 - Gastrointestinal hemorrhage, unspecified SNOMED: 05247479 Assessment/Plan: DKA has resolved hypoglycemia noted yesterday - continue Levemir 18 units qam - reduce Novolog to 5 units ac tid - reduce NISS ac / hs to sensitive Subjective Allergies: Coded Allergies: No Known Allergies (Unverified , 12/02/18) All Systems: reviewed and negative except above Subjective events noted feeling better still in ICU Item Value Date Time Bedside Blood Glucose 159 mg/dl H 12/05/18 0603 Bedside Blood Glucose 120 mg/dl 12/04/18 2041 Bedside Blood Glucose 78 mg/dl 12/04/18 1622 Bedside Blood Glucose 150 mg/dl H 12/04/18 1130 Objective Last 24 Hour Vital Signs Date Time Temp Pulse Resp B/P (MAP) Pulse Ox O2 Delivery O2 Flow Rate FiO2 12/05/18 07:00 80 19 145/81 (102) 98 12/05/18 06:00 77 12 150/122 (131) 96 12/05/18 05:00 81 15 150/79 (102) 96 12/05/18 04:00 97.8 89 15 133/72 (92) 94 12/05/18 04:00 Room Air 12/05/18 03:34 72 12/05/18 03:00 71 15 95/49 (64) 93 12/05/18 02:00 72 12 91/50 (64) 92 12/05/18 01:00 72 12 88/49 (62) 94 12/05/18 00:00 73 12/05/18 00:00 97.9 73 14 96/49 (65) 94 12/05/18 00:00 Room Air 12/04/18 23:00 73 14 92/50 (64) 93 12/04/18 22:00 83 16 141/74 (96) 95 12/04/18 21:30 84 16 169/84 (112) 96 12/04/18 21:00 90 16 181/88 (119) 97 12/04/18 20:00 Room Air 12/04/18 20:00 98.0 88 17 124/74 (91) 97 12/04/18 20:00 87 12/04/18 19:00 86 17 147/71 (96) 97 12/04/18 18:00 89 17 158/77 (104) 97 12/04/18 17:00 85 15 158/77 (104) 97 12/04/18 16:00 98.0 87 19 154/78 (103) 93 12/04/18 16:00 Room Air 12/04/18 16:00 82 12/04/18 15:00 87 21 145/70 (95) 96 12/04/18 14:00 84 15 108/52 (70) 94 12/04/18 13:00 84 12 144/67 (92) 93 12/04/18 12:00 87 12/04/18 12:00 Room Air 12/04/18 12:00 98.3 87 15 165/86 (112) 93 12/04/18 11:00 103 13 146/93 (110) 99 12/04/18 10:00 97 13 170/90 (116) 97 Intake and Output 12/04/18 12/05/18 19:00 07:00 Intake Total 2005 ml 1560 ml Output Total 550 ml 750 ml Balance 1455 ml 810 ml Intake Oral 580 ml 360 ml IV Total 1425 ml 1200 ml Output Urine Total 300 ml 750 ml Emesis 250 ml # Voids 2 # Bowel Movements 2 Laboratory Tests 12/05/18 05:30: White Blood Count 15.0H, Red Blood Count 3.81L, Hemoglobin 11.2L, Hematocrit 34.7L, Mean Corpuscular Volume 91, Mean Corpuscular Hemoglobin 29.3, Mean Corpuscular Hemoglobin Concent 32.2, Red Cell Distribution Width 13.3, Platelet Count 121#L, Mean Platelet Volume 10.1, Neutrophils (%) (Auto) 63.0, Lymphocytes (%) (Auto) 28.0, Monocytes (%) (Auto) 6.5, Eosinophils (%) (Auto) 0.9, Basophils (%) (Auto) 1.6, Sodium Level 138, Potassium Level 4.1, Chloride Level 103, Carbon Dioxide Level 29, Anion Gap 6, Blood Urea Nitrogen 12, Creatinine 1.2, Estimat Glomerular Filtration Rate 47.9, Glucose Level 163H, Calcium Level 9.1, Phosphorus Level 2.7, Magnesium Level 2.0, Total Bilirubin 0.6, Aspartate Amino Transf (AST/SGOT) 26, Alanine Aminotransferase (ALT/SGPT) 24, Alkaline Phosphatase 84, Total Protein 6.9, Albumin 3.2L, Globulin 3.7, Albumin/Globulin Ratio 0.9L Height (Feet): 5 Height (Inches): 3.00 Weight (Pounds): 162 General Appearance: no apparent distress Neck: normal alignment Cardiovascular: normal rate Respiratory/Chest: lungs clear Abdomen: normal bowel sounds Edema: no edema noted Arm (L), no edema noted Arm (R), no edema noted Leg (L), no edema noted Leg (R), no edema noted Pedal (L), no edema noted Pedal (R), no edema noted Generalized Objective Current Medications Medications (Trade) Dose Ordered Sig/Xander Route PRN Reason Start Time Stop Time Status Last Admin Dose Admin Acetaminophen (Tylenol) 650 mg Q4H PRN ORAL fever (temp>100.5F) 12/03/18 11:00 01/01/19 22:59 12/03/18 17:12 Dextrose (Dextrose 50%) 25 ml Q30M PRN IV Hypoglycemia 12/04/18 07:15 01/03/19 07:14 Dextrose (Dextrose 50%) 50 ml Q30M PRN IV Hypoglycemia 12/04/18 07:15 01/03/19 07:14 Diphenhydramine HCl (Benadryl) 25 mg Q6H PRN ORAL Itching/Pruritis 12/03/18 11:00 01/01/19 22:59 12/03/18 14:11 Docusate Sodium (Colace) 100 mg TWICE A DAY ORAL 12/03/18 18:00 01/02/19 17:59 12/04/18 17:46 Gabapentin (Neurontin) 300 mg BEDTIME ORAL 12/03/18 21:00 01/02/19 20:59 12/04/18 20:39 Insulin Aspart (NovoLOG) BEFORE MEALS AND HS SUBQ 12/04/18 11:30 01/03/19 11:29 12/05/18 06:03 Insulin Aspart (NovoLOG) 6 units NOVOTIAC SUBQ 12/04/18 08:00 01/03/19 07:59 12/05/18 06:03 Insulin Detemir (Levemir) 18 units DAILY SUBQ 12/04/18 09:00 01/03/19 08:59 12/04/18 08:30 Lactulose (Cephulac) 10 gm THREE TIMES A DAY ORAL 12/04/18 09:00 01/03/19 08:59 12/04/18 17:46 Lorazepam (Ativan) 0.5 mg Q6H PRN ORAL For Anxiety 12/03/18 10:30 12/10/18 10:29 12/04/18 18:38 Morphine Sulfate (MS Contin) 15 mg Q6H PRN ORAL Severe Pain (Pain Scale 7-10) 12/04/18 10:15 12/11/18 10:14 12/04/18 17:55 Ondansetron HCl (Zofran) 4 mg Q6H PRN IVP Nausea & Vomiting 12/03/18 11:00 01/01/19 22:59 12/04/18 18:38 Pantoprazole (Protonix) 40 mg EVERY 12 HOURS ORAL 12/03/18 10:30 01/02/19 10:29 12/04/18 20:39 Polyethylene Glycol (Miralax) 17 gm BEDTIME ORAL 12/03/18 21:00 01/02/19 20:59 12/04/18 20:39 Sertraline HCl (Zoloft) 125 mg DAILY ORAL 12/05/18 09:00 01/04/19 08:59 Sodium Chloride 1,000 ml @ 100 mls/hr Q10H IV 12/04/18 08:00 01/03/19 07:59 12/05/18 03:56 Temazepam (Restoril) 15 mg HSPRN PRN ORAL Insomnia 12/03/18 21:00 12/09/18 20:59 12/03/18 21:39 Diallo Polo MD December 05, 2018 09:09
--- NOTE | 2018-12-05 10:00 | NUR ---
NURSE NOTES: Turned and repositioned. VSS. Call light within reach, bed alarm on for safety, bed on lowest position. Will continue plan of care.
[2018-12-05] MEDS: Lactulose 10gm/15ml UDC ORAL SCH ×2 (10:52→13:00)
[2018-12-05] MEDS: Docusate 100mg cap ORAL SCH ×2 (10:53→17:41)
[2018-12-05] MEDS ORDERED: NovoLOG Insulin Flexpen SUBQ SCH ×2 (11:30→11:50)
--- NOTE | 2018-12-05 12:00 | NUR ---
NURSE NOTES: VSS No distress noted will continue plan of care. Patient asleep at this time.
--- NOTE | 2018-12-05 13:55 | NUR ---
TRANSFER TO FLOOR: Patient transferred to Med Surg, per Hospital bed. Report given to Yuly FAROOQ using SBAR. Belongings and medications given to Family & patient. Family and or S/O informed of transfer.
[2018-12-05] MEDS ORDERED: MS Contin 15mg tab ORAL PRN (14:00)
[2018-12-05] MEDS ORDERED: LORazepam 0.5mg tab ORAL PRN (14:00)
--- NOTE | 2018-12-05 14:09 | Internal Med Progress Note ---
Subjective Date of Service: December 05, 2018 Physician Name Mukund Cavazos Attending Physician Donald Dixon MD Current Medications Medications (Trade) Dose Ordered Sig/Xander Route PRN Reason Start Time Stop Time Status Last Admin Dose Admin Acetaminophen (Tylenol) 650 mg Q4H PRN ORAL fever (temp>100.5F) 12/05/18 13:59 01/01/19 13:58 Dextrose (Dextrose 50%) 25 ml Q30M PRN IV Hypoglycemia 12/05/18 14:15 01/04/19 09:14 Dextrose (Dextrose 50%) 50 ml Q30M PRN IV Hypoglycemia 12/05/18 14:15 01/04/19 09:14 Diphenhydramine HCl (Benadryl) 25 mg Q6H PRN ORAL Itching/Pruritis 12/05/18 13:59 01/01/19 13:58 Docusate Sodium (Colace) 100 mg TWICE A DAY ORAL 12/05/18 18:00 01/02/19 17:59 Gabapentin (Neurontin) 300 mg BEDTIME ORAL 12/05/18 21:00 01/02/19 20:59 Insulin Aspart (NovoLOG) BEFORE MEALS AND HS SUBQ 12/05/18 16:30 01/04/19 11:29 Insulin Aspart (NovoLOG) 5 units NOVOTIAC SUBQ 12/05/18 16:50 01/03/19 07:59 Insulin Detemir (Levemir) 18 units DAILY SUBQ 12/06/18 09:00 01/03/19 08:59 Lactulose (Cephulac) 10 gm THREE TIMES A DAY ORAL 12/05/18 18:00 01/03/19 08:59 Lorazepam (Ativan) 0.5 mg Q6H PRN ORAL For Anxiety 12/05/18 14:00 12/10/18 13:59 Morphine Sulfate (MS Contin) 15 mg Q6H PRN ORAL Severe Pain (Pain Scale 7-10) 12/05/18 14:00 12/11/18 13:59 Ondansetron HCl (Zofran) 4 mg Q6H PRN IVP Nausea & Vomiting 12/05/18 14:00 01/01/19 13:59 Pantoprazole (Protonix) 40 mg EVERY 12 HOURS ORAL 12/05/18 21:00 01/02/19 10:29 Polyethylene Glycol (Miralax) 17 gm BEDTIME ORAL 12/05/18 21:00 01/02/19 20:59 Sertraline HCl (Zoloft) 125 mg DAILY ORAL 12/06/18 09:00 01/04/19 08:59 Sodium Chloride 1,000 ml @ 100 mls/hr Q10H IV 12/05/18 13:58 01/04/19 13:57 Temazepam (Restoril) 15 mg HSPRN PRN ORAL Insomnia 12/05/18 21:00 12/09/18 20:59 Allergies: Coded Allergies: No Known Allergies (Unverified , 12/02/18) ROS Limited/Unobtainable: No Constitutional: Reports: no symptoms HEENT: Reports: no symptoms Cardiovascular: Reports: no symptoms Respiratory: Reports: no symptoms Gastrointestinal/Abdominal: Reports: no symptoms Genitourinary: Reports: no symptoms Neurologic/Psychiatric: Reports: no symptoms Subjective 48 YO F admitted with hyperglycemia and upper GI bleed. Cover for Int Med-Dr Dixon. ICU Objective Last Vital Signs Date Time Temp Pulse Resp B/P (MAP) Pulse Ox O2 Delivery O2 Flow Rate FiO2 12/05/18 13:00 80 20 132/74 (93) 98 12/05/18 12:00 Room Air 12/05/18 09:00 98.8 Laboratory Tests Test 12/05/18 05:30 White Blood Count 15.0 K/UL (4.8-10.8) H Red Blood Count 3.81 M/UL (4.20-5.40) L Hemoglobin 11.2 G/DL (12.0-16.0) L Hematocrit 34.7 % (37.0-47.0) L Mean Corpuscular Volume 91 FL (80-99) Mean Corpuscular Hemoglobin 29.3 PG (27.0-31.0) Mean Corpuscular Hemoglobin Concent 32.2 G/DL (32.0-36.0) Red Cell Distribution Width 13.3 % (11.6-14.8) Platelet Count 121 K/UL (150-450) #L Mean Platelet Volume 10.1 FL (6.5-10.1) Neutrophils (%) (Auto) 63.0 % (45.0-75.0) Lymphocytes (%) (Auto) 28.0 % (20.0-45.0) Monocytes (%) (Auto) 6.5 % (1.0-10.0) Eosinophils (%) (Auto) 0.9 % (0.0-3.0) Basophils (%) (Auto) 1.6 % (0.0-2.0) Sodium Level 138 MMOL/L (136-145) Potassium Level 4.1 MMOL/L (3.5-5.1) Chloride Level 103 MMOL/L (98-107) Carbon Dioxide Level 29 MMOL/L (21-32) Anion Gap 6 mmol/L (5-15) Blood Urea Nitrogen 12 mg/dL (7-18) Creatinine 1.2 MG/DL (0.55-1.30) Estimat Glomerular Filtration Rate 47.9 mL/min (>60) Glucose Level 163 MG/DL (74-106) H Calcium Level 9.1 MG/DL (8.5-10.1) Phosphorus Level 2.7 MG/DL (2.5-4.9) Magnesium Level 2.0 MG/DL (1.8-2.4) Total Bilirubin 0.6 MG/DL (0.2-1.0) Aspartate Amino Transf (AST/SGOT) 26 U/L (15-37) Alanine Aminotransferase (ALT/SGPT) 24 U/L (12-78) Alkaline Phosphatase 84 U/L (46-116) Total Protein 6.9 G/DL (6.4-8.2) Albumin 3.2 G/DL (3.4-5.0) L Globulin 3.7 g/dL Albumin/Globulin Ratio 0.9 (1.0-2.7) L Microbiology Date/Time Source Procedure Growth Status 12/02/18 23:30 Nasal Nares MRSA Culture - Final NO METHICILLIN RESISTANT STAPH AUREUS... Complete 12/02/18 23:30 Rectum - Final NO CARBAPENEM-RESISTANT ENTEROBACTERI... Complete 12/02/18 23:30 Rectum VRE Culture - Final NO VANCOMYCIN RESISTANT ENTEROCOCCUS ... Complete Intake and Output 12/04/18 12/05/18 18:59 06:59 Intake Total 2030 ml 1560 ml Output Total 550 ml 750 ml Balance 1480 ml 810 ml Intake Oral 580 ml 360 ml IV Total 1450 ml 1200 ml Output Urine Total 300 ml 750 ml Emesis 250 ml # Voids 2 # Bowel Movements 2 Objective PHYSICAL EXAMINATION: GENERAL: The patient is awake and responsive, in no acute distress. HEAD AND NECK: Pupils are equal and reactive to light. Extraocular movements intact. Neck was supple. No JVD. LUNGS: Good air entry. No wheeze or rales. HEART: S1, S2. Tachycardic. No murmur or gallops. ABDOMEN: Soft and nondistended. Tenderness on deep palpation in the epigastric area. No rebound tenderness. No fluid shift. Midline surgical scar was noted from previous surgery. EXTREMITIES: No cyanosis, clubbing, or edema. NEUROLOGIC: Cranial nerves II to XII grossly intact. Motor is 5/5 in all extremities. Gait is intact. RECTAL: Refused and deferred. GENITOURINARY: Refused and deferred. PSYCHIATRIC: Mood and affect is anxious. Assessment/Plan Assessment/Plan ASSESSMENT: 1. Diabetic ketoacidosis. 2. Upper gastrointestinal bleed. 3. Severe dehydration. 4. Acute renal failure on chronic. 5. Uncontrolled diabetes type 2. 6. Dyslipidemia. 7. Hypotension, most likely secondary to volume depletion. 8. Chronic lumbar disk disease. PLAN: 1. We will follow up with the DKA protocol. Discussed case with Dr. Morgan, Pulmonary Critical Care and Dr. Polo from Endocrine. 2. We will follow up with Dr. Mccoy from Gastroenterology. Clear liquid diet. 3. Code status is Full Code. DVT prophylaxis, SCDs. 4. Start the patient on Protonix twice a day and Ativan as needed. Monitor laboratory. Monitor blood glucose level closely. Mukund Cavazos MD December 05, 2018 14:09
--- NOTE | 2018-12-05 17:18 | NUR ---
CASE MANAGEMENT: REVIEW SI: HYPERGLYCEMIA . DKA . UGI BLEED T 98.8 HR 79 RR 19 BP 177/71 SAT 98% ROOM AIR WBC 15.0 H/H 11.2/34.7 IS: LACTULOSE PO TID NS IVF @ 100ML/HR MED/SURG STATUS DCP: PATIENT IS FROM [facility]
[2018-12-05] MEDS: Lactulose 20gm/30ml UDC ORAL SCH (17:41)
--- NOTE | 2018-12-05 18:44 | NUR ---
NURSE NOTES: Pt states she needs additional assistance because she is not ambulator. Did not want to complete dinner due to blood sugar levels. Insulin explained. Continues have concerns about constipation, lactulose and stool softener given. Current plan of care will be followed
--- NOTE | 2018-12-05 19:47 | NUR ---
HAND-OFF: Report given to Jade FAROOQ.
--- NOTE | 2018-12-05 20:00 | NUR ---
NURSE NOTES: Pt awake alert x 4. no acute distress noted respiration even unlabored pt on room air. SL to right AC intact. Pt blood sugar monitored ACHS.Fall precaution implemented. Pt call light in reach bed to lowest position . will continue to monitor patients condition
[2018-12-05] MEDS: Miralax 17gm pkt ORAL SCH (21:02)
[2018-12-06] MEDS: NS w/KCl 20mEq 1000ml 1,000 ML IV SCH ×3 (01:52→21:07)
--- NOTE | 2018-12-06 06:54 | General Progress Note ---
Assessment/Plan Problem List: (1) Hyperglycemia ICD Codes: R73.9 - Hyperglycemia, unspecified SNOMED: 68965889 (2) Abdominal pain ICD Codes: R10.9 - Unspecified abdominal pain SNOMED: 68933982 (3) DKA (diabetic ketoacidoses) ICD Codes: E11.10 - Type 2 diabetes mellitus with ketoacidosis without coma SNOMED: 22404733, 149395964 (4) UGI bleed ICD Codes: K92.2 - Gastrointestinal hemorrhage, unspecified SNOMED: 69782502 Assessment/Plan: - reduce Levemir to 15 units qam - continue Novolog to 5 units ac tid - continue NISS ac / hs sensitive scale Subjective Allergies: Coded Allergies: No Known Allergies (Unverified , 12/02/18) All Systems: reviewed and negative except above Subjective events noted transferred out of ICU did not receive Levemir yesterday Item Value Date Time Bedside Blood Glucose 204 mg/dl H 12/05/18 2107 Bedside Blood Glucose 177 mg/dl H 12/05/18 1811 Bedside Blood Glucose 93 mg/dl 12/05/18 1130 Bedside Blood Glucose 73 mg/dl 12/05/18 1054 Bedside Blood Glucose 159 mg/dl H 12/05/18 0603 Bedside Blood Glucose 120 mg/dl 12/04/18 2041 Objective Last 24 Hour Vital Signs Date Time Temp Pulse Resp B/P (MAP) Pulse Ox O2 Delivery O2 Flow Rate FiO2 12/05/18 20:00 98.1 93 20 144/81 (102) 99 12/05/18 13:00 80 20 132/74 (93) 98 12/05/18 12:00 93 12/05/18 12:00 Room Air 12/05/18 11:00 85 20 144/75 (98) 98 12/05/18 10:00 88 19 155/77 (103) 98 12/05/18 09:00 98.8 79 19 165/68 (100) 98 12/05/18 08:00 75 12/05/18 08:00 Room Air 12/05/18 08:00 82 19 177/71 (106) 98 12/05/18 07:00 80 19 145/81 (102) 98 Intake and Output 12/05/18 12/06/18 19:00 07:00 Intake Total 100 ml Output Total 1050 ml Balance -950 ml Intake Oral 0 ml IV Total 100 ml Output Urine Total 1050 ml Height (Feet): 5 Height (Inches): 3.00 Weight (Pounds): 162 General Appearance: no apparent distress Neck: normal alignment Cardiovascular: normal rate Respiratory/Chest: lungs clear Abdomen: normal bowel sounds Pelvis: normal external exam Objective Current Medications Medications (Trade) Dose Ordered Sig/Xander Route PRN Reason Start Time Stop Time Status Last Admin Dose Admin Acetaminophen (Tylenol) 650 mg Q4H PRN ORAL fever (temp>100.5F) 12/05/18 13:59 01/01/19 13:58 Acetaminophen/ Hydrocodone Bitart ([place] 5/325) 1 tab Q6H PRN ORAL moderate pain 12/05/18 17:45 12/12/18 17:44 Dextrose (Dextrose 50%) 25 ml Q30M PRN IV Hypoglycemia 12/05/18 14:15 01/04/19 09:14 Dextrose (Dextrose 50%) 50 ml Q30M PRN IV Hypoglycemia 12/05/18 14:15 01/04/19 09:14 Diphenhydramine HCl (Benadryl) 25 mg Q6H PRN ORAL Itching/Pruritis 12/05/18 13:59 01/01/19 13:58 Docusate Sodium (Colace) 100 mg TWICE A DAY ORAL 12/05/18 18:00 01/02/19 17:59 12/05/18 17:41 Gabapentin (Neurontin) 300 mg BEDTIME ORAL 12/05/18 21:00 01/02/19 20:59 12/05/18 21:03 Insulin Aspart (NovoLOG) BEFORE MEALS AND HS SUBQ 12/05/18 16:30 01/04/19 11:29 12/05/18 21:07 Insulin Aspart (NovoLOG) 5 units NOVOTIAC SUBQ 12/05/18 16:50 01/03/19 07:59 12/05/18 18:11 Insulin Detemir (Levemir) 18 units DAILY SUBQ 12/06/18 09:00 01/03/19 08:59 Lactulose (Cephulac) 10 gm THREE TIMES A DAY ORAL 12/05/18 18:00 01/03/19 08:59 12/05/18 17:41 Lorazepam (Ativan) 0.5 mg Q6H PRN ORAL For Anxiety 12/05/18 14:00 12/10/18 13:59 Morphine Sulfate (MS Contin) 15 mg Q6H PRN ORAL Severe Pain (Pain Scale 7-10) 12/05/18 14:00 12/11/18 13:59 Ondansetron HCl (Zofran) 4 mg Q6H PRN IVP Nausea & Vomiting 12/05/18 14:00 01/01/19 13:59 12/05/18 16:06 Pantoprazole (Protonix) 40 mg EVERY 12 HOURS ORAL 12/05/18 21:00 01/02/19 10:29 12/05/18 21:03 Polyethylene Glycol (Miralax) 17 gm BEDTIME ORAL 12/05/18 21:00 01/02/19 20:59 12/05/18 21:02 Sertraline HCl (Zoloft) 125 mg DAILY ORAL 12/06/18 09:00 01/04/19 08:59 Sodium Chloride 1,000 ml @ 100 mls/hr Q10H IV 12/05/18 13:58 01/04/19 13:57 12/06/18 01:52 Temazepam (Restoril) 15 mg HSPRN PRN ORAL Insomnia 12/05/18 21:00 12/09/18 20:59 Diallo Polo MD December 06, 2018 06:54
[2018-12-06] MEDS: NovoLOG Insulin Flexpen SUBQ SCH ×7 (07:58→21:11)
--- NOTE | 2018-12-06 08:21 | NUR ---
NURSE NOTES: POND SUPERVISOR ASSISTED PT TO THE COMMODE HAS NOT HAD A BM UPON THIS MOMENT. PATIENT HAD AN INCONTINENT EPISODE COMPLETE LINEN CHANGE NEEDED. DENIES PAIN AT THIS TIME. CURRENT PLAN OF CARE WILL BE FOLLOWED
--- NOTE | 2018-12-06 08:24 | NUR ---
NURSE NOTES: UNABLE TO SIGN PROCESS PLANS AT THIS TIME REVIEWED
[2018-12-06] MEDS: Sertraline 50mg tab ORAL SCH (08:40)
[2018-12-06] MEDS: Lactulose 20gm/30ml UDC ORAL SCH ×3 (08:40→17:27)
[2018-12-06] MEDS: HYDROcodone/Acetamin 5/325 tab ORAL PRN (08:42)
[2018-12-06] MEDS ORDERED: Levemir Flexpen SUBQ SCH ×2 (09:00)
[2018-12-06] MEDS: Docusate 100mg cap ORAL SCH ×2 (09:29→17:27)
--- NOTE | 2018-12-06 10:57 | NUR ---
NURSE NOTES: business writer was not able out of sepsis screen when questions were answered , pt has chills and temperature is elevated. Tylenol given will follow up
--- NOTE | 2018-12-06 11:19 | GI Progress Note ---
Assessment/Plan Problems: (1) DKA (diabetic ketoacidoses) ICD Codes: E11.10 - Type 2 diabetes mellitus with ketoacidosis without coma SNOMED: 73569161, 597281023 (2) Constipation ICD Codes: K59.00 - Constipation, unspecified SNOMED: 83024353 (3) UGI bleed ICD Codes: K92.2 - Gastrointestinal hemorrhage, unspecified SNOMED: 02328196 (4) Abdominal pain ICD Codes: R10.9 - Unspecified abdominal pain SNOMED: 25326034 (5) Hyperglycemia ICD Codes: R73.9 - Hyperglycemia, unspecified SNOMED: 92814163 Status: stable Status Narrative Discussed with Dr. Medina. Assessment/Plan colace and miralax, add dulcolax x 1 Diabetes management Pain management PPI Electrolyte correction Follow labs The patient was seen and examined at bedside and all new and available data was reviewed in the patients chart. I agree with the above findings, impression and plan. (Patient seen earlier today. Signature stamp does not reflect patient encounter time.). - Shayne Medina MD Subjective Gastrointestinal/Abdominal: Reports: no symptoms Objective Last 24 Hour Vital Signs Date Time Temp Pulse Resp B/P (MAP) Pulse Ox O2 Delivery O2 Flow Rate FiO2 12/06/18 10:13 98.9 12/05/18 20:00 98.1 93 20 144/81 (102) 99 12/05/18 13:00 80 20 132/74 (93) 98 12/05/18 12:00 93 12/05/18 12:00 Room Air Intake and Output 12/05/18 12/06/18 19:00 07:00 Intake Total 100 ml Output Total 1050 ml Balance -950 ml Intake Oral 0 ml IV Total 100 ml Output Urine Total 1050 ml Height (Feet): 5 Height (Inches): 3.00 Weight (Pounds): 162 General Appearance: WD/WN, no apparent distress, alert Cardiovascular: normal rate Respiratory/Chest: normal breath sounds, no respiratory distress Abdominal Exam: normal bowel sounds, non tender, soft Extremities: normal range of motion, non-tender Aurea Mcmahan NP December 06, 2018 11:19
[2018-12-06] MEDS ORDERED: Bisacodyl EC 5mg tab ORAL SCH (11:30)
[2018-12-06 12:37] LABS: BASOPHILS % (AUTO) 1.6 % (0.0-2.0); EOSINOPHILS % (AUTO) 1.7 % (0.0-3.0); HEMATOCRIT 33.2 % (37.0-47.0); HEMOGLOBIN 10.6 G/DL (12.0-16.0); LYMPHOCYTES % (AUTO) 38.7 % (20.0-45.0); MEAN CORPUSCULAR VOLUME 91 FL (80-99); MONOCYTES % (AUTO) 5.7 % (1.0-10.0); NEUTROPHILS % (AUTO) 52.3 % (45.0-75.0); PLATELET COUNT 242 K/UL (150-450); RED BLOOD COUNT 3.66 M/UL (4.20-5.40); RED CELL DISTRIBUTION WIDTH 12.7 % (11.6-14.8); WHITE BLOOD COUNT 9.3 K/UL (4.8-10.8)
[2018-12-06 12:50] LABS: ANION GAP 9 mmol/L (5-15); BLOOD UREA NITROGEN 13 mg/dL (7-18); CALCIUM 9.3 MG/DL (8.5-10.1); CARBON DIOXIDE 25 MMOL/L (21-32); CHLORIDE 100 MMOL/L (98-107); CREATININE 1.1 MG/DL (0.55-1.30); POTASSIUM 4.8 MMOL/L (3.5-5.1); SODIUM 134 MMOL/L (136-145)
[2018-12-06] MEDS ORDERED: LEVEMIR FL100 UNIT/1 SUBQ (12:53)
[2018-12-06] MEDS ORDERED: ZOLOFT50 MG ORAL (12:53)
[2018-12-06] MEDS ORDERED: NOVOLOG100 UNITS1 SUBQ (12:54)
--- NOTE | 2018-12-06 13:01 | Pulmonology Progress Note ---
Assessment/Plan Problems: (1) DKA (diabetic ketoacidoses) (2) Hyperglycemia (3) Abdominal pain (4) UGI bleed Assessment/Plan BS better increase levemir to bid dc planning Subjective ROS Limited/Unobtainable: No Constitutional: Reports: no symptoms HEENT: Repors: no symptoms Respiratory: Reports: no symptoms Allergies: Coded Allergies: No Known Allergies (Unverified , 12/02/18) Objective Last 24 Hour Vital Signs Date Time Temp Pulse Resp B/P (MAP) Pulse Ox O2 Delivery O2 Flow Rate FiO2 12/06/18 10:13 98.9 12/05/18 20:00 98.1 93 20 144/81 (102) 99 Intake and Output 12/05/18 12/06/18 19:00 07:00 Intake Total 100 ml Output Total 1050 ml Balance -950 ml Intake Oral 0 ml IV Total 100 ml Output Urine Total 1050 ml General Appearance: WD/WN HEENT: normocephalic Respiratory/Chest: chest wall non-tender, normal breath sounds Cardiovascular: normal peripheral pulses, regular rhythm Abdomen: no organomegaly Genitourinary: normal external genitalia Extremities: no clubbing Laboratory Tests 12/06/18 11:55: White Blood Count 9.3, Red Blood Count 3.66L, Hemoglobin 10.6L, Hematocrit 33.2L , Mean Corpuscular Volume 91, Mean Corpuscular Hemoglobin 29.0, Mean Corpuscular Hemoglobin Concent 32.0, Red Cell Distribution Width 12.7, Platelet Count 242#, Mean Platelet Volume 9.6, Neutrophils (%) (Auto) 52.3, Lymphocytes ( %) (Auto) 38.7, Monocytes (%) (Auto) 5.7, Eosinophils (%) (Auto) 1.7, Basophils (%) (Auto) 1.6, Sodium Level 134L, Potassium Level 4.8, Chloride Level 100, Carbon Dioxide Level 25, Anion Gap 9, Blood Urea Nitrogen 13, Creatinine 1.1, Estimat Glomerular Filtration Rate 53.0, Glucose Level 270#H, Calcium Level 9.3 Current Medications Medications (Trade) Dose Ordered Sig/Xander Route PRN Reason Start Time Stop Time Status Last Admin Dose Admin Acetaminophen (Tylenol) 650 mg Q4H PRN ORAL fever (temp>100.5F) 12/05/18 13:59 01/01/19 13:58 12/06/18 09:43 Acetaminophen/ Hydrocodone Bitart ([place] 5/325) 1 tab Q6H PRN ORAL moderate pain 12/05/18 17:45 12/12/18 17:44 12/06/18 08:42 Dextrose (Dextrose 50%) 25 ml Q30M PRN IV Hypoglycemia 12/05/18 14:15 01/04/19 09:14 Dextrose (Dextrose 50%) 50 ml Q30M PRN IV Hypoglycemia 12/05/18 14:15 01/04/19 09:14 Diphenhydramine HCl (Benadryl) 25 mg Q6H PRN ORAL Itching/Pruritis 12/05/18 13:59 01/01/19 13:58 Docusate Sodium (Colace) 100 mg TWICE A DAY ORAL 12/05/18 18:00 01/02/19 17:59 12/06/18 09:29 Gabapentin (Neurontin) 300 mg BEDTIME ORAL 12/05/18 21:00 01/02/19 20:59 12/05/18 21:03 Insulin Aspart (NovoLOG) BEFORE MEALS AND HS SUBQ 12/05/18 16:30 01/04/19 11:29 12/06/18 07:58 Insulin Aspart (NovoLOG) 5 units NOVOTIAC SUBQ 12/05/18 16:50 01/03/19 07:59 12/06/18 07:59 Insulin Detemir (Levemir) 15 units DAILY SUBQ 12/06/18 09:00 01/03/19 08:59 12/06/18 09:33 Lactulose (Cephulac) 10 gm THREE TIMES A DAY ORAL 12/05/18 18:00 01/03/19 08:59 12/06/18 08:40 Lorazepam (Ativan) 0.5 mg Q6H PRN ORAL For Anxiety 12/05/18 14:00 12/10/18 13:59 Morphine Sulfate (MS Contin) 15 mg Q6H PRN ORAL Severe Pain (Pain Scale 7-10) 12/05/18 14:00 12/11/18 13:59 Ondansetron HCl (Zofran) 4 mg Q6H PRN IVP Nausea & Vomiting 12/05/18 14:00 01/01/19 13:59 12/05/18 16:06 Pantoprazole (Protonix) 40 mg EVERY 12 HOURS ORAL 12/05/18 21:00 01/02/19 10:29 12/06/18 08:41 Polyethylene Glycol (Miralax) 17 gm BEDTIME ORAL 12/05/18 21:00 01/02/19 20:59 12/05/18 21:02 Sertraline HCl (Zoloft) 125 mg DAILY ORAL 12/06/18 09:00 01/04/19 08:59 12/06/18 08:40 Sodium Chloride 1,000 ml @ 100 mls/hr Q10H IV 12/05/18 13:58 01/04/19 13:57 12/06/18 01:52 Temazepam (Restoril) 15 mg HSPRN PRN ORAL Insomnia 12/05/18 21:00 12/09/18 20:59 Misbah Morgan MD December 06, 2018 13:01
--- NOTE | 2018-12-06 14:58 | NUR ---
P.T NOTE: P.T EVALUATION COMPLETED AND TREATMENT INITIATED. PLEASE REFER TO P.T EVALUATION FOR CURRENT FUNCTIONAL STATUS. PATIENT IS LIMITED BY GENERALIZED WEAKNESS AND DECREASED ACTIVITY TOLERANCE. PATIENT CURRENTLY REQUIRE MIN X A X 1 FOR BED MOBILITY, TRANSFERS AND GAIT/AMBULATION ACTIVITIES USING THE FWW. PATIENT WOULD BENEFIT FROM SKILLED P.T TO INCREASE HER STRENGTH AND ENDURANCE TO INCREASE FUNCTIONAL MOBILITY INDEPENDENCE. PATIENT WOULD BENEFIT FROM EITHER HOME HEALTH P.T OR SNF FOR SHORT TERM REHAB. THANK YOU FOR THIS REFERRAL.
--- NOTE | 2018-12-06 16:56 | NUR ---
DISCHARGE PLANNING PATIENT WAS REFERRED BACK TO [facility] EARLIER THIS AFTERNOON INITIALLY PATIENT WAS NOT WILLING TO RETURN TO [facility]. APRYL FROM SNF CAME TO HOSPITAL TO ADDRESS ALL OF PATIENT CONCERNS AND SHE IS NOW AGREEABLE TO RETURN [facility] REQUESTED THIS [employer]PECT[employer] SECURE AUTHORIZATION FOR PATIENT TO RETURN [employer] SHINGLE INSPECTOR HAS BEEN IN TOUCH WITH SAMANTHA [employer] SHINGLE INSPECTOR RUDDY FOX IS REVIEWING CLINICALS AND WILL LET US KNOW IF SHE IS GIVING AUTHORIZATION TO RETURN TO SNF
--- NOTE | 2018-12-06 17:00 | NUR ---
NURSE NOTES: blood sugar entered in error blood sugar 182
--- NOTE | 2018-12-06 17:29 | NUR ---
NURSE NOTES: waiting for pt to eat her meal for insulin
--- NOTE | 2018-12-06 19:06 | NUR ---
NURSE NOTES: Dr Dixon phoned earlier in shift due to pt elevated blood pressure, chills and elevated temperatures. Zofran given x2 , Tylenol given for temperature. The aZck did not give further orders. Pt given Zofran for episode of vomitus small in amount no odor, presence of mucous like and small amount food. Pt has compalined about nausea since earlier in shift. Has yet to have a BM. [place] aware
--- NOTE | 2018-12-06 19:11 | Internal Med Progress Note ---
Subjective Date of Service: December 06, 2018 Physician Name Mkuund Cavazos Attending Physician Donald Dixon MD Current Medications Medications (Trade) Dose Ordered Sig/Xander Route PRN Reason Start Time Stop Time Status Last Admin Dose Admin Acetaminophen (Tylenol) 650 mg Q4H PRN ORAL fever (temp>100.5F) 12/05/18 13:59 01/01/19 13:58 12/06/18 09:43 Acetaminophen/ Hydrocodone Bitart ([place] 5/325) 1 tab Q6H PRN ORAL moderate pain 12/05/18 17:45 12/12/18 17:44 12/06/18 08:42 Dextrose (Dextrose 50%) 25 ml Q30M PRN IV Hypoglycemia 12/05/18 14:15 01/04/19 09:14 Dextrose (Dextrose 50%) 50 ml Q30M PRN IV Hypoglycemia 12/05/18 14:15 01/04/19 09:14 Diphenhydramine HCl (Benadryl) 25 mg Q6H PRN ORAL Itching/Pruritis 12/05/18 13:59 01/01/19 13:58 Docusate Sodium (Colace) 100 mg TWICE A DAY ORAL 12/05/18 18:00 01/02/19 17:59 12/06/18 17:27 Gabapentin (Neurontin) 300 mg BEDTIME ORAL 12/05/18 21:00 01/02/19 20:59 12/05/18 21:03 Insulin Aspart (NovoLOG) BEFORE MEALS AND HS SUBQ 12/05/18 16:30 01/04/19 11:29 12/06/18 18:42 Insulin Aspart (NovoLOG) 5 units NOVOTIAC SUBQ 12/05/18 16:50 01/03/19 07:59 12/06/18 18:42 Insulin Detemir (Levemir) 15 units DAILY SUBQ 12/06/18 09:00 01/03/19 08:59 12/06/18 09:33 Lactulose (Cephulac) 10 gm THREE TIMES A DAY ORAL 12/05/18 18:00 01/03/19 08:59 12/06/18 17:27 Lorazepam (Ativan) 0.5 mg Q6H PRN ORAL For Anxiety 12/05/18 14:00 12/10/18 13:59 Morphine Sulfate (MS Contin) 15 mg Q6H PRN ORAL Severe Pain (Pain Scale 7-10) 12/05/18 14:00 12/11/18 13:59 Ondansetron HCl (Zofran) 4 mg Q6H PRN IVP Nausea & Vomiting 12/05/18 14:00 01/01/19 13:59 12/06/18 18:40 Pantoprazole (Protonix) 40 mg EVERY 12 HOURS ORAL 12/05/18 21:00 01/02/19 10:29 12/06/18 08:41 Polyethylene Glycol (Miralax) 17 gm BEDTIME ORAL 12/05/18 21:00 01/02/19 20:59 12/05/18 21:02 Sertraline HCl (Zoloft) 125 mg DAILY ORAL 12/06/18 09:00 01/04/19 08:59 12/06/18 08:40 Sodium Chloride 1,000 ml @ 100 mls/hr Q10H IV 12/05/18 13:58 01/04/19 13:57 12/06/18 01:52 Temazepam (Restoril) 15 mg HSPRN PRN ORAL Insomnia 12/05/18 21:00 12/09/18 20:59 Allergies: Coded Allergies: No Known Allergies (Unverified , 12/02/18) ROS Limited/Unobtainable: No Constitutional: Reports: no symptoms HEENT: Reports: no symptoms Cardiovascular: Reports: no symptoms Respiratory: Reports: no symptoms Gastrointestinal/Abdominal: Reports: no symptoms Genitourinary: Reports: no symptoms Neurologic/Psychiatric: Reports: no symptoms Subjective 48 YO F admitted with hyperglycemia and upper GI bleed. Cover for Int [facility]-Dr Dixon. Objective Last Vital Signs Date Time Temp Pulse Resp B/P (MAP) Pulse Ox O2 Delivery O2 Flow Rate FiO2 12/06/18 10:13 98.9 12/05/18 20:00 93 20 144/81 (102) 99 12/05/18 12:00 Room Air Laboratory Tests Test 12/06/18 11:55 White Blood Count 9.3 K/UL (4.8-10.8) Red Blood Count 3.66 M/UL (4.20-5.40) L Hemoglobin 10.6 G/DL (12.0-16.0) L Hematocrit 33.2 % (37.0-47.0) L Mean Corpuscular Volume 91 FL (80-99) Mean Corpuscular Hemoglobin 29.0 PG (27.0-31.0) Mean Corpuscular Hemoglobin Concent 32.0 G/DL (32.0-36.0) Red Cell Distribution Width 12.7 % (11.6-14.8) Platelet Count 242 K/UL (150-450) # Mean Platelet Volume 9.6 FL (6.5-10.1) Neutrophils (%) (Auto) 52.3 % (45.0-75.0) Lymphocytes (%) (Auto) 38.7 % (20.0-45.0) Monocytes (%) (Auto) 5.7 % (1.0-10.0) Eosinophils (%) (Auto) 1.7 % (0.0-3.0) Basophils (%) (Auto) 1.6 % (0.0-2.0) Sodium Level 134 MMOL/L (136-145) L Potassium Level 4.8 MMOL/L (3.5-5.1) Chloride Level 100 MMOL/L (98-107) Carbon Dioxide Level 25 MMOL/L (21-32) Anion Gap 9 mmol/L (5-15) Blood Urea Nitrogen 13 mg/dL (7-18) Creatinine 1.1 MG/DL (0.55-1.30) Estimat Glomerular Filtration Rate 53.0 mL/min (>60) Glucose Level 270 MG/DL (74-106) #H Calcium Level 9.3 MG/DL (8.5-10.1) Intake and Output 12/05/18 12/06/18 18:59 06:59 Intake Total 200 ml Output Total 1050 ml Balance -850 ml Intake Oral 0 ml IV Total 200 ml Output Urine Total 1050 ml Objective PHYSICAL EXAMINATION: GENERAL: The patient is awake and responsive, in no acute distress. HEAD AND NECK: Pupils are equal and reactive to light. Extraocular movements intact. Neck was supple. No JVD. LUNGS: Good air entry. No wheeze or rales. HEART: S1, S2. Tachycardic. No murmur or gallops. ABDOMEN: Soft and nondistended. Tenderness on deep palpation in the epigastric area. No rebound tenderness. No fluid shift. Midline surgical scar was noted from previous surgery. EXTREMITIES: No cyanosis, clubbing, or edema. NEUROLOGIC: Cranial nerves II to XII grossly intact. Motor is 5/5 in all extremities. Gait is intact. RECTAL: Refused and deferred. GENITOURINARY: Refused and deferred. PSYCHIATRIC: Mood and affect is anxious. Assessment/Plan Assessment/Plan ASSESSMENT: 1. Diabetic ketoacidosis. 2. Upper gastrointestinal bleed. 3. Severe dehydration. 4. Acute renal failure on chronic. 5. Uncontrolled diabetes type 2. 6. Dyslipidemia. 7. Hypotension, most likely secondary to volume depletion. 8. Chronic lumbar disk disease. PLAN: 1. We will follow up with the DKA protocol. Discussed case with Dr. Morgan, Pulmonary Critical Care and Dr. Polo from Endocrine. 2. We will follow up with Dr. Mccoy from Gastroenterology. 3. Code status is Full Code. DVT prophylaxis, SCDs. 4. Start the patient on Protonix twice a day and Ativan as needed. Monitor laboratory. Monitor blood glucose level closely. Mukund Cavazos MD December 06, 2018 19:11
--- NOTE | 2018-12-06 19:34 | NUR ---
NURSE NOTES: video game script writer spoke case management Lisseth in regards to pt returning back to [facility]. Pt agreed to return after talking to the education administrator. Case Management stated insurance needs to be authorized. Current plan of care will be followed
--- NOTE | 2018-12-06 19:36 | NUR ---
HAND-OFF: Report given to Jeny OLIVAREZ .
--- NOTE | 2018-12-06 19:36 | NUR ---
NURSE NOTES:Patient received A/A/OX4 . Patient denies any pain at this time . nos/s of distress noted . RFA G#18 with NS with kcl 20 @100cc /hr infusing well . Call light within reach . bed in low position at all times . will continue to monitor .
--- NOTE | 2018-12-06 19:45 | Progress Note ---
DATE: 12/06/2018 SUBJECTIVE: The patient is more alert and is able to answer questions appropriately. No suicidal or homicidal ideation. The patient continues to have anxiety. Calmer today. MENTAL STATUS EXAMINATION: Alert and oriented times self, place, and situation she is in. Mood is depressed. Affect is constricted. Congruent with mood. Thought process is linear. Thought content, no suicidal or homicidal ideations. ASSESSMENT: 1. Major depressive disorder. 2. Anxiety disorder. PLAN: 1. We will continue the Zoloft 125 mg in the morning. 2. Continue Ativan. 3. Provide the patient with reality orientation and supportive therapy. We will continue to follow and readjust the medication. Jaguar Schilling M.D. DR: DEEPAK JOB#: [id number] CC:
--- NOTE | 2018-12-06 19:46 | Cardiology Report ---
APPROVED REPORT EKG Measurement Heart [id number] Normal sinus rhythm Prolonged QT Abnormal ECG
[2018-12-06 20:00] VITALS: BP 142/86
[2018-12-06] MEDS: Miralax 17gm pkt ORAL SCH (21:07)
--- NOTE | 2018-12-06 23:00 | NUR ---
NURSE NOTES:Patient assisted to BSC and had 2 normal BM . and assisted back to bed . patient instructed to use the call light when needed . patient safety maintained . will continuen to monitor .
[2018-12-07] VITALS: BP 137/83
[2018-12-07] MEDS: HYDROcodone/Acetamin 5/325 tab ORAL PRN (03:42)
[2018-12-07 03:58] VITALS: BP 131/81
[2018-12-07] MEDS: NS w/KCl 20mEq 1000ml 1,000 ML IV SCH ×2 (05:34→15:58)
[2018-12-07] MEDS: NovoLOG Insulin Flexpen SUBQ SCH ×5 (06:28→16:30)
--- NOTE | 2018-12-07 06:35 | General Progress Note ---
Assessment/Plan Problem List: (1) Hyperglycemia ICD Codes: R73.9 - Hyperglycemia, unspecified SNOMED: 76853232 (2) Abdominal pain ICD Codes: R10.9 - Unspecified abdominal pain SNOMED: 30867159 (3) DKA (diabetic ketoacidoses) ICD Codes: E11.10 - Type 2 diabetes mellitus with ketoacidosis without coma SNOMED: 35896030, 520344479 (4) UGI bleed ICD Codes: K92.2 - Gastrointestinal hemorrhage, unspecified SNOMED: 67627831 Status: stable Assessment/Plan: - increase Levemir to 18 units qam - increase Novolog to 6 units ac tid - continue NISS ac / hs sensitive scale Subjective Allergies: Coded Allergies: No Known Allergies (Unverified , 12/02/18) All Systems: reviewed and negative except above Subjective events noted Objective Last 24 Hour Vital Signs Date Time Temp Pulse Resp B/P (MAP) Pulse Ox O2 Delivery O2 Flow Rate FiO2 12/07/18 04:12 98.7 12/07/18 03:58 98.7 91 18 131/81 (98) 98 12/07/18 00:00 98.7 88 17 137/83 (101) 96 12/06/18 20:00 99.0 94 16 142/86 (104) 96 12/06/18 10:13 98.9 Intake and Output 12/06/18 12/07/18 19:00 07:00 Intake Total 1000 ml 1600 ml Balance 1000 ml 1600 ml Intake Oral 900 ml IV Total 1000 ml 700 ml # Voids 5 # Bowel Movements 3 Laboratory Tests 12/06/18 11:55: White Blood Count 9.3, Red Blood Count 3.66L, Hemoglobin 10.6L, Hematocrit 33.2L , Mean Corpuscular Volume 91, Mean Corpuscular Hemoglobin 29.0, Mean Corpuscular Hemoglobin Concent 32.0, Red Cell Distribution Width 12.7, Platelet Count 242#, Mean Platelet Volume 9.6, Neutrophils (%) (Auto) 52.3, Lymphocytes ( %) (Auto) 38.7, Monocytes (%) (Auto) 5.7, Eosinophils (%) (Auto) 1.7, Basophils (%) (Auto) 1.6, Sodium Level 134L, Potassium Level 4.8, Chloride Level 100, Carbon Dioxide Level 25, Anion Gap 9, Blood Urea Nitrogen 13, Creatinine 1.1, Estimat Glomerular Filtration Rate 53.0, Glucose Level 270#H, Calcium Level 9.3 12/07/18 05:45: White Blood Count [Pending], Red Blood Count [Pending], Hemoglobin [Pending], Hematocrit [Pending], Mean Corpuscular Volume [Pending], Mean Corpuscular Hemoglobin [Pending], Mean Corpuscular Hemoglobin Concent [Pending], Red Cell Distribution Width [Pending], Platelet Count [Pending], Mean Platelet Volume [ Pending], Neutrophils (%) (Auto) [Pending], Lymphocytes (%) (Auto) [Pending], Monocytes (%) (Auto) [Pending], Eosinophils (%) (Auto) [Pending], Basophils (%) (Auto) [Pending], Sodium Level [Pending], Potassium Level [Pending], Chloride Level [Pending], Carbon Dioxide Level [Pending], Blood Urea Nitrogen [Pending], Creatinine [Pending], Estimat Glomerular Filtration Rate [Pending], Glucose Level [Pending], Calcium Level [Pending] Height (Feet): 5 Height (Inches): 3.00 Weight (Pounds): 162 General Appearance: no apparent distress Neck: normal alignment Cardiovascular: normal rate Respiratory/Chest: lungs clear Abdomen: normal bowel sounds Pelvis: normal external exam Objective Current Medications Medications (Trade) Dose Ordered Sig/Xander Route PRN Reason Start Time Stop Time Status Last Admin Dose Admin Acetaminophen (Tylenol) 650 mg Q4H PRN ORAL fever (temp>100.5F) 12/05/18 13:59 01/01/19 13:58 12/06/18 09:43 Acetaminophen/ Hydrocodone Bitart ([place] 5/325) 1 tab Q6H PRN ORAL moderate pain 12/05/18 17:45 12/12/18 17:44 12/07/18 03:42 Dextrose (Dextrose 50%) 25 ml Q30M PRN IV Hypoglycemia 12/05/18 14:15 01/04/19 09:14 Dextrose (Dextrose 50%) 50 ml Q30M PRN IV Hypoglycemia 12/05/18 14:15 01/04/19 09:14 Diphenhydramine HCl (Benadryl) 25 mg Q6H PRN ORAL Itching/Pruritis 12/05/18 13:59 01/01/19 13:58 Docusate Sodium (Colace) 100 mg TWICE A DAY ORAL 12/05/18 18:00 01/02/19 17:59 12/06/18 17:27 Gabapentin (Neurontin) 300 mg BEDTIME ORAL 12/05/18 21:00 01/02/19 20:59 12/06/18 21:09 Insulin Aspart (NovoLOG) BEFORE MEALS AND HS SUBQ 12/05/18 16:30 01/04/19 11:29 12/07/18 06:28 Insulin Aspart (NovoLOG) 5 units NOVOTIAC SUBQ 12/05/18 16:50 01/03/19 07:59 12/06/18 18:42 Insulin Detemir (Levemir) 15 units DAILY SUBQ 12/06/18 09:00 01/03/19 08:59 12/06/18 09:33 Lactulose (Cephulac) 10 gm THREE TIMES A DAY ORAL 12/05/18 18:00 01/03/19 08:59 12/06/18 17:27 Lorazepam (Ativan) 0.5 mg Q6H PRN ORAL For Anxiety 12/05/18 14:00 12/10/18 13:59 Morphine Sulfate (MS Contin) 15 mg Q6H PRN ORAL Severe Pain (Pain Scale 7-10) 12/05/18 14:00 12/11/18 13:59 Ondansetron HCl (Zofran) 4 mg Q6H PRN IVP Nausea & Vomiting 12/05/18 14:00 01/01/19 13:59 12/06/18 18:40 Pantoprazole (Protonix) 40 mg EVERY 12 HOURS ORAL 12/05/18 21:00 01/02/19 10:29 12/06/18 21:08 Polyethylene Glycol (Miralax) 17 gm BEDTIME ORAL 12/05/18 21:00 01/02/19 20:59 12/06/18 21:07 Sertraline HCl (Zoloft) 125 mg DAILY ORAL 12/06/18 09:00 01/04/19 08:59 12/06/18 08:40 Sodium Chloride 1,000 ml @ 100 mls/hr Q10H IV 12/05/18 13:58 01/04/19 13:57 12/07/18 05:34 Temazepam (Restoril) 15 mg HSPRN PRN ORAL Insomnia 12/05/18 21:00 12/09/18 20:59 Diallo Polo MD December 07, 2018 06:35
[2018-12-07 06:53] LABS: ANION GAP 8 mmol/L (5-15); BLOOD UREA NITROGEN 13 mg/dL (7-18); CALCIUM 9.3 MG/DL (8.5-10.1); CARBON DIOXIDE 26 MMOL/L (21-32); CHLORIDE 102 MMOL/L (98-107); CREATININE 1.1 MG/DL (0.55-1.30); POTASSIUM 4.4 MMOL/L (3.5-5.1); SODIUM 136 MMOL/L (136-145)
[2018-12-07 06:58] LABS: BASOPHILS % (AUTO) 1.6 % (0.0-2.0); EOSINOPHILS % (AUTO) 1.5 % (0.0-3.0); HEMATOCRIT 32.9 % (37.0-47.0); HEMOGLOBIN 10.6 G/DL (12.0-16.0); LYMPHOCYTES % (AUTO) 37.6 % (20.0-45.0); MEAN CORPUSCULAR VOLUME 91 FL (80-99); MONOCYTES % (AUTO) 7.8 % (1.0-10.0); NEUTROPHILS % (AUTO) 51.6 % (45.0-75.0); PLATELET COUNT 238 K/UL (150-450); RED BLOOD COUNT 3.62 M/UL (4.20-5.40); RED CELL DISTRIBUTION WIDTH 13.2 % (11.6-14.8); WHITE BLOOD COUNT 9.1 K/UL (4.8-10.8)
--- NOTE | 2018-12-07 07:30 | NUR ---
HAND-OFF: Report given to NGOC Bunch
--- NOTE | 2018-12-07 07:30 | NUR ---
NURSE NOTES: Received report from Jeny OLIVAREZ. Patient is awake alert and oriented x4, no acute distress noted. Patient is on bedside commode, reports she has had diarrhea x2 this morning. Not reporting any pain at this time. IVF running per order. Fall precautions maintained and patient educated to call for assistance to go back to bed. Side rails upx3, bed low and locked, call light in reach. Will continue to monitor.
[2018-12-07 08:00] VITALS: BP 119/67
[2018-12-07] MEDS: Docusate 100mg cap ORAL SCH (09:00)
[2018-12-07] MEDS: Lactulose 20gm/30ml UDC ORAL SCH (09:00)
[2018-12-07] MEDS ORDERED: Levemir Flexpen SUBQ SCH (09:00)
[2018-12-07] MEDS: Sertraline 50mg tab ORAL SCH (09:00)
--- NOTE | 2018-12-07 09:19 | NUR ---
NURSE NOTES: Informed LONNIE Lozada that patient has been having diarrhea. Colace and lactulose held per order and PSYCHOLOGY FELLOW ordered to discontinue. Orders entered. Will continue to monitor.
--- NOTE | 2018-12-07 09:53 | GI Progress Note ---
Assessment/Plan Problems: (1) DKA (diabetic ketoacidoses) ICD Codes: E11.10 - Type 2 diabetes mellitus with ketoacidosis without coma SNOMED: 09824295, 201261477 (2) Constipation ICD Codes: K59.00 - Constipation, unspecified SNOMED: 74930428 (3) UGI bleed ICD Codes: K92.2 - Gastrointestinal hemorrhage, unspecified SNOMED: 75932471 (4) Abdominal pain ICD Codes: R10.9 - Unspecified abdominal pain SNOMED: 06802522 (5) Hyperglycemia ICD Codes: R73.9 - Hyperglycemia, unspecified SNOMED: 47263721 Status: stable Status Narrative Discussed with Dr. Medina Assessment/Plan Constipation resolved, now has diarrhea. Hold all laxatives and stool softeners. Diabetes management Pain management PPI Electrolyte correction Follow labs The patient was seen and examined at bedside and all new and available data was reviewed in the patients chart. I agree with the above findings, impression and plan. (Patient seen earlier today. Signature stamp does not reflect patient encounter time.). - Shayne Medina MD Subjective Subjective Has complaint of diarrhea Objective Last 24 Hour Vital Signs Date Time Temp Pulse Resp B/P (MAP) Pulse Ox O2 Delivery O2 Flow Rate FiO2 12/07/18 08:00 98.9 104 18 119/67 (84) 94 12/07/18 04:12 98.7 12/07/18 03:58 98.7 91 18 131/81 (98) 98 12/07/18 00:00 98.7 88 17 137/83 (101) 96 12/06/18 20:00 99.0 94 16 142/86 (104) 96 12/06/18 10:13 98.9 Intake and Output 12/06/18 12/07/18 19:00 07:00 Intake Total 1000 ml 2120 ml Balance 1000 ml 2120 ml Intake Oral 1220 ml IV Total 1000 ml 900 ml # Voids 6 # Bowel Movements 3 Laboratory Tests Test 12/06/18 11:55 12/07/18 05:45 White Blood Count 9.3 K/UL (4.8-10.8) 9.1 K/UL (4.8-10.8) Red Blood Count 3.66 M/UL (4.20-5.40) L 3.62 M/UL (4.20-5.40) L Hemoglobin 10.6 G/DL (12.0-16.0) L 10.6 G/DL (12.0-16.0) L Hematocrit 33.2 % (37.0-47.0) L 32.9 % (37.0-47.0) L Mean Corpuscular Volume 91 FL (80-99) 91 FL (80-99) Mean Corpuscular Hemoglobin 29.0 PG (27.0-31.0) 29.4 PG (27.0-31.0) Mean Corpuscular Hemoglobin Concent 32.0 G/DL (32.0-36.0) 32.3 G/DL (32.0-36.0) Red Cell Distribution Width 12.7 % (11.6-14.8) 13.2 % (11.6-14.8) Platelet Count 242 K/UL (150-450) # 238 K/UL (150-450) Mean Platelet Volume 9.6 FL (6.5-10.1) 10.4 FL (6.5-10.1) H Neutrophils (%) (Auto) 52.3 % (45.0-75.0) 51.6 % (45.0-75.0) Lymphocytes (%) (Auto) 38.7 % (20.0-45.0) 37.6 % (20.0-45.0) Monocytes (%) (Auto) 5.7 % (1.0-10.0) 7.8 % (1.0-10.0) Eosinophils (%) (Auto) 1.7 % (0.0-3.0) 1.5 % (0.0-3.0) Basophils (%) (Auto) 1.6 % (0.0-2.0) 1.6 % (0.0-2.0) Sodium Level 134 MMOL/L (136-145) L 136 MMOL/L (136-145) Potassium Level 4.8 MMOL/L (3.5-5.1) 4.4 MMOL/L (3.5-5.1) Chloride Level 100 MMOL/L (98-107) 102 MMOL/L (98-107) Carbon Dioxide Level 25 MMOL/L (21-32) 26 MMOL/L (21-32) Anion Gap 9 mmol/L (5-15) 8 mmol/L (5-15) Blood Urea Nitrogen 13 mg/dL (7-18) 13 mg/dL (7-18) Creatinine 1.1 MG/DL (0.55-1.30) 1.1 MG/DL (0.55-1.30) Estimat Glomerular Filtration Rate 53.0 mL/min (>60) 53.0 mL/min (>60) Glucose Level 270 MG/DL (74-106) #H 259 MG/DL (74-106) H Calcium Level 9.3 MG/DL (8.5-10.1) 9.3 MG/DL (8.5-10.1) Height (Feet): 5 Height (Inches): 3.00 Weight (Pounds): 157 General Appearance: WD/WN, no apparent distress, alert Cardiovascular: normal rate Respiratory/Chest: normal breath sounds, no respiratory distress Abdominal Exam: normal bowel sounds, non tender, soft Extremities: normal range of motion, non-tender Aurea Mcmahan NP December 07, 2018 09:53
--- NOTE | 2018-12-07 11:50 | NUR ---
NURSE NOTES: RFA 24g IV leaking and patient reports IV is painful. IV removed intact and new IV started in left wrist, IV is patent, intact, flushing well, not painful. IVF resumed as ordered. Will continue to monitor.
[2018-12-07 12:00] VITALS: BP 112/77
--- NOTE | 2018-12-07 12:21 | NUR ---
*-* INSURANCE *-* ALL CLINICALS AND REVIEWS HAVE BEEN FAXED TO: [facility] IP[Reji NCM: JOANNE Arriaga;[phone] F:[phone] REF# [id number]
--- NOTE | 2018-12-07 12:25 | NUR ---
CASE MANAGEMENT:REVIEW 12/06/18 SI: HYPERGLYCEMIA. UGIB SEVERE DEHYDRATION 99.0 94 16 142/86 96% ON RA H/H-10.6/32.9 GLUCOSE+270 IS: IVF@100/HR ZOLOFT PO QD LEVEMIR 15U SQ QD NEURONTIN PO QHS PROTONIX PO Q12 NORCO PO Q6HRS PRN SS INSULIN AC+HS : MED/SURG STATUS 3 EAST DCP: RETURN TO [facility] 12/07/18 SI: HYPERGLYCEMIA. UGIB SEVERE DEHYDRATION 98.9 104 18 119/67 94% ON RA GLUCOSE+259 IS: IVF@100/HR ZOLOFT PO QD LEVEMIR 18U SQ QD NEURONTIN PO QHS PROTONIX PO Q12 NORCO PO Q6HRS PRN SS INSULIN AC+HS : MED/SURG STATUS 3 EAST DCP: RETURN TO [facility] PLAN: LEVEMIR DOSE INCREASED
--- NOTE | 2018-12-07 12:34 | NUR ---
DISCHARGE PLANNING PATIENT HAS AGREED TO RETURN TO [facility] HAS ACCEPTED PATIENT BACK WE ARE CURRENTLY WAITING FOR [facility]ERRED [facility] TO GIVE AUTHORIZATION TO [facility] SO WE CAN SEND PATIENT
--- NOTE | 2018-12-07 13:27 | Pulmonology Progress Note ---
Assessment/Plan Problems: (1) DKA (diabetic ketoacidoses) (2) Hyperglycemia (3) Abdominal pain (4) UGI bleed Assessment/Plan BS better increase levemir to bid dc planning Subjective ROS Limited/Unobtainable: No Constitutional: Reports: no symptoms HEENT: Repors: no symptoms Respiratory: Reports: no symptoms Allergies: Coded Allergies: No Known Allergies (Unverified , 12/02/18) Objective Last 24 Hour Vital Signs Date Time Temp Pulse Resp B/P (MAP) Pulse Ox O2 Delivery O2 Flow Rate FiO2 12/07/18 12:00 98.7 94 18 112/77 (89) 94 12/07/18 09:00 Room Air 12/07/18 08:00 98.9 104 18 119/67 (84) 94 12/07/18 04:12 98.7 12/07/18 03:58 98.7 91 18 131/81 (98) 98 12/07/18 00:00 98.7 88 17 137/83 (101) 96 12/06/18 20:00 99.0 94 16 142/86 (104) 96 Intake and Output 12/06/18 12/07/18 19:00 07:00 Intake Total 1000 ml 2120 ml Balance 1000 ml 2120 ml Intake Oral 1220 ml IV Total 1000 ml 900 ml # Voids 6 # Bowel Movements 3 General Appearance: WD/WN HEENT: normocephalic, anicteric Respiratory/Chest: chest wall non-tender, lungs clear Cardiovascular: normal peripheral pulses, normal rate Abdomen: normal bowel sounds, soft, non tender Genitourinary: normal external genitalia Extremities: no clubbing Neurologic/Psychiatric: heel seat sander II-XII grossly normal Laboratory Tests 12/07/18 05:45: White Blood Count 9.1, Red Blood Count 3.62L, Hemoglobin 10.6L, Hematocrit 32.9L , Mean Corpuscular Volume 91, Mean Corpuscular Hemoglobin 29.4, Mean Corpuscular Hemoglobin Concent 32.3, Red Cell Distribution Width 13.2, Platelet Count 238, Mean Platelet Volume 10.4H, Neutrophils (%) (Auto) 51.6, Lymphocytes (%) (Auto) 37.6, Monocytes (%) (Auto) 7.8, Eosinophils (%) (Auto) 1.5, Basophils (%) (Auto) 1.6, Sodium Level 136, Potassium Level 4.4, Chloride Level 102, Carbon Dioxide Level 26, Anion Gap 8, Blood Urea Nitrogen 13, Creatinine 1.1, Estimat Glomerular Filtration Rate 53.0, Glucose Level 259H, Calcium Level 9.3 Current Medications Medications (Trade) Dose Ordered Sig/Xander Route PRN Reason Start Time Stop Time Status Last Admin Dose Admin Acetaminophen (Tylenol) 650 mg Q4H PRN ORAL fever (temp>100.5F) 12/05/18 13:59 01/01/19 13:58 12/06/18 09:43 Acetaminophen/ Hydrocodone Bitart ([place] 5/325) 1 tab Q6H PRN ORAL moderate pain 12/05/18 17:45 12/12/18 17:44 12/07/18 03:42 Dextrose (Dextrose 50%) 25 ml Q30M PRN IV Hypoglycemia 12/05/18 14:15 01/04/19 09:14 Dextrose (Dextrose 50%) 50 ml Q30M PRN IV Hypoglycemia 12/05/18 14:15 01/04/19 09:14 Diphenhydramine HCl (Benadryl) 25 mg Q6H PRN ORAL Itching/Pruritis 12/05/18 13:59 01/01/19 13:58 Gabapentin (Neurontin) 300 mg BEDTIME ORAL 12/05/18 21:00 01/02/19 20:59 12/06/18 21:09 Insulin Aspart (NovoLOG) BEFORE MEALS AND HS SUBQ 12/05/18 16:30 01/04/19 11:29 12/07/18 11:17 Insulin Aspart (NovoLOG) 6 units NOVOTIAC SUBQ 12/07/18 06:45 01/03/19 07:59 12/07/18 12:26 Insulin Detemir (Levemir) 18 units DAILY SUBQ 12/07/18 09:00 01/03/19 08:59 12/07/18 09:00 Lorazepam (Ativan) 0.5 mg Q6H PRN ORAL For Anxiety 12/05/18 14:00 12/10/18 13:59 Morphine Sulfate (MS Contin) 15 mg Q6H PRN ORAL Severe Pain (Pain Scale 7-10) 12/05/18 14:00 12/11/18 13:59 Ondansetron HCl (Zofran) 4 mg Q6H PRN IVP Nausea & Vomiting 12/05/18 14:00 01/01/19 13:59 12/06/18 18:40 Pantoprazole (Protonix) 40 mg EVERY 12 HOURS ORAL 12/05/18 21:00 01/02/19 10:29 12/07/18 08:59 Polyethylene Glycol (Miralax) 17 gm BEDTIME ORAL 12/05/18 21:00 01/02/19 20:59 12/06/18 21:07 Sertraline HCl (Zoloft) 125 mg DAILY ORAL 12/06/18 09:00 01/04/19 08:59 12/07/18 09:00 Sodium Chloride 1,000 ml @ 100 mls/hr Q10H IV 12/05/18 13:58 01/04/19 13:57 12/07/18 05:34 Temazepam (Restoril) 15 mg HSPRN PRN ORAL Insomnia 12/05/18 21:00 12/09/18 20:59 Misbah Morgan MD December 07, 2018 13:27
--- NOTE | 2018-12-07 14:51 | NUR ---
DISCHARGE PLANNED PATIENT IS RETURNING TO [facility] ROOM [address] SKILLED T: [phone] FOR NURSE TO NURSE REPORT [facility] HAS BEEN ARRANGED FOR 1530 SENIOR INVESTMENT MANAGER PATIENT IS IN AGREEMENT WITH DISCHARGE PLAN [facility] WAS SATURATED AND UNABLE TO ACCOMMODATE TRANSPORTING THIS PATIENT TODAY AMBULANCE AUTH NUMBER [id number]
--- NOTE | 2018-12-07 15:05 | NUR ---
NURSE NOTES: Called and gave report from Nba FAROOQ at [facility].
[2018-12-07 15:54] VITALS: BP 158/99
--- NOTE | 2018-12-07 16:35 | NUR ---
NURSE NOTES: Patient discharged. No acute distress upon discharge. All belongings given to patient and ambulance personnel. VS within normal limits. IV removed intact. Discharge packet given to ambulance personnel, patient transferred to [facility]. Patient's family aware of discharge.
--- NOTE | 2018-12-07 18:15 | Progress Note ---
DATE: 12/07/2018 SUBJECTIVE: The patient is doing better. Less pain. No behavior issues. Continues to be depressed. Presents with anxiety. Low energy. MENTAL STATUS EXAMINATION: Alert and oriented times self, place, and situation. Mood is dysphoric. Affect is constricted. Congruent with mood. Thought process is linear. Thought content, no suicidal or homicidal ideations. Cognition is intact. ASSESSMENT: 1. Major depressive disorder. 2. Anxiety. PLAN: The patient will be continued on current medication. Provide the patient with reality orientation and supportive therapy. Jaguar Schilling M.D. DR: DEEPAK JOB#: [id number] CC:
--- NOTE | 2018-12-08 11:38 | NUR ---
*-* INSURANCE *-* ALL CLINICALS AND REVIEWS HAVE BEEN FAXED TO: [facility][Reji NCM: JOANNE Arriaga;[phone] F:[phone] REF# [id number]
--- NOTE | 2018-12-10 09:15 | Discharge Summary ---
Discharge Summary Discharge Summary _ ADATE OF ADMISSION: 12/02/2018 DATE OF DISCHARGE: 12/07/2018 DISCHARGED BY: Dr. Dixon REASON FOR ADMISSION: 48 years old female with past medical history of diabetes mellitus type 2, hypertension, dyslipidemia, chronic back pain with a history of lumbar spine compression fracture, history of left ankle surgery, anxiety disorder presented to the hospital with complaint of nausea and vomiting. According to the patient she vomited dark material at the nursing facility . At that time her blood sugar was high, and patient received 12 units of insulin. Nursing staff reported coffee-ground emesis for 24 hours, associated with intractable nausea and vomiting. Patient denied fall or head trauma. Patient reported constipation. Last bowel movement was about 4 days ago. Abdominal pain was present and located in epigastric area. Upon evaluation in emergency department patient was found to be in diabetic ketoacidosis with glucose level of 525. Anion gap 26. CO2 18. Stable potassium. Stable LFT. Mild leukocytosis WBC 11.2. Stable hemoglobin and hematocrit. BUN 45, creatinine 2.1. Urinalysis revealed +2 protein, +4 glucose, +4 ketones. No evidence of urinary tract infection. Acetone level was positive Chest x-ray demonstrated no acute cardiopulmonary pathology. Abdominal x-ray demonstrated no acute findings. Patient subsequently was admitted to the intensive care unit for DKA management. CONSULTANTS: pulmonary Dr. Morgan GI specialist Dr. Medina psychiatrist Pharmacologist Dr. Polo [facility] COURSE: Patient started on generous IV hydration and DKA protocol. Patient initially started on insulin drip. Renal parameters and electrolytes were closely monitored, electrolytes corrected as needed . Pharmacologist followed. When anion gap closed , insulin drip was discontinued and patient started on long-acting Levemir, short acting pre-meal insulin as well as sliding scale of insulin as needed. Insulin regimen was optimized by typing pool supervisor based on blood glucose levels. Hemoglobin A1c 10.6, clearly not at goal. Patient was counseled on compliance with anti-glycemic medication regimen. Diabetic teaching provided. Patient will need further optimization of anti-glycemic regimen as outpatient. Venous duplex bilateral lower extremity revealed no evidence of acute DVT. GI specialist followed. Intensive bowel regimen instituted. Patient started to have bowel movements. Constipation resolved. Patient started on PPI. Supportive care provided. Antiemetics are on board as needed. Patient was able to tolerate diet. No further evidence of emesis Hemoglobin and hematocrit were closely monitor with goal to keep hemoglobin above 7. Prior to discharge hemoglobin 10.6, hematocrit 32.9. No need for GI procedure at this time. Pain management was addressed. Renal parameters and electrolytes were closely monitored. Nephrotoxic's avoided as possible. Renal ultrasound revealed no evidence of acute findings. Prior to discharge BUN 13 creatinine 1.1. Acute kidney injury was likely due to severe dehydration . Psychiatrist followed and diagnosed patient with anxiety and major depressive disorder. Psychiatric medication regimen was optimized as per psychiatrist. Patient was provided with reality orientation and supportive therapy. Blood pressure stabilized with aggressive hydration. Leukocytosis resolved. No evidence of infection, no fevers. Leukocytosis was likely reactive due to DKA and severe dehydration. Patient clinically stabilized and was ready for transfer back to [facility] facility for continuation of care. FINAL DIAGNOSES: Diabetic ketoacidosis -resolved Upper GI bleeding-resolved Diabetes mellitus type 2 , uncontrolled (with hemoglobin A1c 10.5) Acute kidney injury likely due to dehydration- resolved Severe dehydration Abdominal pain , likely due to constipation- resolved Initial hypotension, probably secondary to volume depletion- resolved Chronic lumbar disc disease Dyslipidemia DISCHARGE MEDICATIONS: See Medication Reconciliation list. DISCHARGE INSTRUCTIONS: Patient was discharged to the [facility] facility. Follow up with medical doctor at the facility. I have been assigned to dictate discharge summary for this account. I was not involved in the patient's management. Imelda Herrera NP December 10, 2018 09:15
== END 2018-12-07 16:35 | DRG 420 ==
LOC: EDBD 20:53 → EMR 21:19 → 2E 21:49 → EDBEDREQSVC 21:56 → EDBEDREQ 23:10 → ICU 12-03 09:51 → 3E 12-05 13:39
DX: E11.10 Type 2 diabetes mellitus with ketoacidosis without coma (principal); N17.9 Acute kidney failure, unspecified; I95.9 Hypotension, unspecified; K92.2 Gastrointestinal hemorrhage, unspecified; I13.10 Hypertensive heart and chronic kidney disease without heart failure, with stage 1 through stage 4 chronic kidney disease, or unspecified chronic kidney disease; E86.0 Dehydration; N18.9 Chronic kidney disease, unspecified; E11.22 Type 2 diabetes mellitus with diabetic chronic kidney disease; E78.5 Hyperlipidemia, unspecified; M51.36 Other intervertebral disc degeneration, lumbar region; F32.9 Major depressive disorder, single episode, unspecified; K59.00 Constipation, unspecified; R10.9 Unspecified abdominal pain
CPT/HCPCS: 36415; 71045; 74018; 76770; 80048; 80053; 81001; 81003; 81025; 82009; 82043; 82150; 82550; 82803; 82962; 83036; 83605; 83690; 83735; 83935; 84100; 84300; 84550; 85007; 85025; 85610; 85730; 87081; 89050; 93005; 93970; 96365; 96366; 96375; 99285; J1815; J2405; J2765; S5561